=== PATIENT | male | born 1950 | race Caucasian/White ===

== ENCOUNTER → 2017-01-13 | Outpatient (CLI) | payer BC ==
[~2017-01-13] MED LIST: MULT-506 PO
[2017-01-13 08:52] LABS: ALT/SGPT 22 U/L (12-78); AST/SGOT 18 U/L (15-37); BLOOD UREA NITROGEN 13 mg/dl (7-18); BUN/CREATININE RATIO 14.1 (10-20); CARBON DIOXIDE 30 mmol/L (21-32); CHLORIDE 107 mmol/L (98-107); CHOLESTEROL 219 mg/dl (0-200); CREATININE 0.92 mg/dl (0.60-1.40); GLUCOSE 90 mg/dl (70-99); POTASSIUM 4.3 mmol/L (3.5-5.1); SODIUM 145 mmol/L (136-145); TRIGLYCERIDES 56 mg/dl (0-150); VERY LOW DENSITY LIPOPROT CALC 11 mg/dl
[2017-01-13 08:56] LABS: HDL CHOLESTEROL 74 mg/dl; LDL CHOLESTEROL CALCULATED 134 mg/dl
== END | disposition home or self-care (01) ==
LOC: C.LAB 07:35
PROVIDERS: ATTEND Internal Medicine
DX: E55.9 Vitamin D deficiency, unspecified (principal); E78.5 Hyperlipidemia, unspecified; R97.20 Elevated prostate specific antigen [PSA]

== ENCOUNTER → 2017-02-03 | Outpatient (CLI) | payer BC ==
[2017-02-03 11:13] LABS: BLOOD UREA NITROGEN 12 mg/dl (7-18); BUN/CREATININE RATIO 13.5 (10-20); CREATININE 0.92 mg/dl (0.60-1.40)
== END ==
LOC: C.LABBC 07:46
PROVIDERS: ATTEND Urology
DX: Z12.5 Encounter for screening for malignant neoplasm of prostate (principal); R97.20 Elevated prostate specific antigen [PSA]

== ENCOUNTER → 2017-05-07 | Outpatient (CLI) | payer BC ==
[~2017-05-07] MED LIST changes: +ALFU10TA2 PO; +DTR/5 PO; +IBUP-1050 PO; +MULTTAB58 PO; +PHEN95TA14 PO; +PSYL0.524; +PSYL48.59 PO; +TAMS0.4C38 PO
== END | disposition home or self-care (01) ==
LOC: C.PATHSPEC 17:50
PROVIDERS: ATTEND Urology
DX: C61 Malignant neoplasm of prostate (principal)

== ENCOUNTER → 2017-08-21 | Outpatient (CLI) | payer BC ==
[~2017-08-21] MED LIST changes: -ALFU10TA2 PO; -DTR/5 PO; -IBUP-1050 PO; -MULTTAB58 PO; -PHEN95TA14 PO; -PSYL0.524; -PSYL48.59 PO
--- NOTE | 2017-08-21 12:28 | DIAGNOSTIC IMAGING REPORT ---
PELVIS WITHOUT CONTRAST (MRI) CLINICAL HISTORY: PROSTATE CA Spaceoar gel implant assessment COMPARISON STUDY: No previous studies for comparison. FINDINGS: The Spaceoar hydrogel implant is visualized between the rectum and prostate. The implant measures 33 mm transversely, 15 mm in AP diameter, and 47 mm in craniocaudad distance. T2-weighted images reveal a hypointense mass within the peripheral zone of the left side of the prostate. This abuts the capsule. The minimal distance between the rectum and the mass is 7 mm. IMPRESSION: Satisfactory positioning of the hydrogel implant. The minimum distance between the rectum and the left peripheral zone T2 hypointense mass is 7 mm. Electronically signed by: Jorge A Valderrama M.D. 08/21/2017 12:27 PM Dictated Date/Time: 08/21/2017 12:21 PM
== END | disposition home or self-care (01) ==
LOC: C.MRI 07:56
PROVIDERS: ATTEND Physician Assistant Medical
DX: C61 Malignant neoplasm of prostate (principal); Z96.89 Presence of other specified functional implants

== ENCOUNTER → 2017-11-27 | Outpatient (CLI) | payer BC ==
[~2017-11-27] MED LIST changes: +ACET-1311 PO; +ALFU10TA2 PO; +CIPR-255 PO; +DTR/5 PO; +IBUP-1459 PO; +METH1TAB81 PO; +METH4PAK PO; -MULT-506 PO; +MULTTAB58 PO; +PHEN95TA14 PO; +PSYL0.524; +PSYL48.59 PO; -TAMS0.4C38 PO
[2017-11-27 09:06] VITALS: BP 100/64; PULSE 87; TEMP 36.6; O2SAT 96
--- NOTE | 2017-11-27 13:03 | Radiation Oncology Follow-Up ---
Radiation Oncology Follow-Up Date of Visit Nov 27, 2017. Reason For Visit Three-week follow-up in cancer survivorship care plan Radiation Completion Date finished 11-01-2017 utilizing VMAT Diagnosis (1) Prostate cancer Status: Chronic Onset Date: 05/07/2017 Location: both lobes of the prostate Histology Subtype: adenocarcinoma Stage: ll Permanent Comment: Rising PSA to 8.26 01/27/2013 Status post ultrasound-guided biopsies 05/21/2013, benign Rising PSA to 14.5 Ultrasound-guided biopsies 05/07/2017 Adenocarcinoma Fior 3+3 and 3+4 Hormone suppression Status post gold fiducials and Space OAR 08/14/2017 Status post completion of radiation therapy 11/01/2017 utilizing VMAT. Last Edited By: Renetta Fuller on Nov 12, 2017 09:51 History of Present Illness Mr. Devi has a history of an elevated PSA. His PSA was 7.61 on 10/15/2012, 8.26 on 01/27/2013, 10.6 on 07/02/2014, 11.4 on 01/07/2016, 14.8 on 01/13/2017, and 14.5 on 02/03/2017. He did previously undergo a biopsy of the prostate gland on 05/21/2013 for his elevated PSA which was negative. He did see Dr. Zelaya and reevaluation who recommended repeating a transrectal ultrasound- guided biopsy. Dr. Zelaya did also perform a rectal examination prior to his biopsy which did not reveal any evidence of palpable disease. The patient was brought for a transrectal ultrasound-guided biopsy on 05/07/2017. The prostate gland was measured to be 37.0 cc. Pathology revealed prostate adenocarcinoma involved in 3/14 cores. The highest [place] score was Fior 3+4 involving 2 course with no evidence of perineural invasion. Dr. Zelaya discuss treatment options including potential active surveillance, surgery and radiation therapy. We are now seeing the patient in consultation discussed role of radiation therapy. In general, the patient is doing relatively well. His IPSS score today is 16/ 35. He design take any medications for urinary flow. His EPIC QoL score is 7/ 60. He denies any history of rectal bleeding or hemorrhoids. He denies any history of inflammatory bowel disease or TURP. He has no other complaints at this point. He made decision to undergo hormone suppression followed by radiation therapy. Radiation was completed 11/01/2017 he received 8100 cGy utilizing VMAT. Interim History His had increased urinary symptoms. His symptoms would increase and then decrease over the past 3 weeks. He has not been taking medication on a regular basis. He took Uroxatral for 10 days following treatment. He then stop the medication and started oxybutynin. He wanted to see if the oxybutynin would be more effective. He took this 3 times a day with Azo. Periodically he would add ibuprofen. He then took Azo and ibuprofen alone for a week. Most recently he is taking Ditropan and Uroxatral. Some days will be better than others. He is also been having frequent loose bowel movements. This occurs up to 12 times per day. He feels fatigued due to lack of sleep. He completed an AUA score sheet and gave a score of 49 with adding the number of times per night he gets up to urinate. There are times when he feels as though he needs to urinate and is unable. If he tries again a little later then he is able to urinate. He stopped taking Metamucil. He completed and expanded prostate cancer index composite for clinical practice and gave a score of 4 of 12 and urinary incontinence symptoms. He gave a score of 12 of 12 urinary irritation symptoms. He gave a score of 9 of 12 and bowel symptoms. He gave a score 512 in sexual symptoms. He gave a score of 3 of 12 in hormonal vitality symptoms. His total was 33 of 60. While in our office today the urinalysis was requested. On 2 occasions she attempted to urinate and was unable to urinate. Allergies Coded Allergies: No Known Allergies (Unverified , 11/29/17) Home Medications Scheduled Alfuzosin Hcl (Uroxatral), 10 MG PO DAILY Methylprednisolone (Medrol Dosepak), 1 PKT PO UD Multiple Vitamin (Multivitamin), 1 TAB PO DAILY Phenazopyridine Hcl (Azo Tabs), 1 TAB PO BID Psyllium (Metamucil), 1 PKT PO DAILY Scheduled PRN Ibuprofen (Motrin), 400 MG PO Q6H PRN for Pain Miscellaneous Medications Methylprednisolone (Medrol), 4 MG PO Review of Systems Gastrointestinal: Symptoms: Diarrhea GI Comments: diarrhea every other day , occ consipation Oral: Symptoms: Scant Saliva/Dry Mouth Respiratory: Symptoms: SOB At Rest, SOB With Exertion Other Respiratory: " I had a sneezing episode last night " Urinary: Symptoms: Pain, Burning, Nocturia, Frequency Comments: urinationing every 10 min 2 hrs a day, has occ pain and burning Skin: Symptoms: No Problems Physical Exam Vital Signs Date Time Temp Pulse Resp B/P (MAP) Pulse Ox O2 Delivery O2 Flow Rate FiO2 11/27/17 09:06 36.6 87 18 100/64 96 Fatigue: None General Appearance: no apparent distress Eyes: normal inspection, EOMI ENT: normal ENT inspection, hearing grossly normal Respiratory/Chest: lungs clear, no respiratory distress, no accessory muscle use Cardiovascular: regular rate, rhythm, no gallop, no murmur Abdomen: non tender, soft, no organomegaly Extremities: no pedal edema Neurologic/Psychiatric: no motor/sensory deficits, alert, normal mood/affect Pain Management Patient Reports Pain: No Side: Bilateral Patient Preferred Pain Scale: 0 - 10 Initial Pain Intensity: 0.0 Pain Management Plan He describes a lower pelvic pressure. He takes Azo for dysuria. He does not require pain medication. Laboratory Laboratory Results: pending (urinalysis and culture if indicated) Pathology Pathology Results: pending Imaging Imaging Comments Bladder scan was obtained today and reveals 500-600 mL Assessment & Plan Plan: The patient's also seen and examined by Dr. Reis. We have given him a instruction sheet to follow. Prescription was given for Medrol Dosepak. He'll continue Uroxatral daily. He will stop the oxybutynin. He is to take Metamucil 2 scoops daily. He is to take Azo 3 times a day. Straight catheterization was performed. 475 mL were obtained. Urine was sent for urinalysis and culture if indicated. PSA was not obtained today due to his symptoms and the straight catheterization. We asked him to return to our office in 2 weeks. We may hold on getting a PSA for approximately one month. Today we completed a cancer survivorship care plan. A copy of the document was given to the patient. He was given a survivorship booklet. He may call our office if he has the questions or concerns in the interim. Assessment & Plan (Attending) ADDENDUM: I agree with note created by Renetta Fuller PA-C. I reviewed the patient's chart and information with her. I have examined and evaluated the patient. I reviewed relevant clinical information and answered the patient's and /or family's questions. CLINICAL NURSING ASSISTANT Total Time In Follow-Up I spent 25 minutes speaking to the patient performing examination. I spent 15 minutes reviewing information in completing this note. Total Time (Attending) In Follow-Up I spent 15 minutes examining and counseling the patient. CLINICAL NURSING ASSISTANT Copy To ,Gregorio Israel M.D.; Harley Zelaya M.D.
== END | disposition home or self-care (01) ==
LOC: C.ONC 09:02
PROVIDERS: ATTEND Physician Assistant Medical
DX: Z08 Encounter for follow-up examination after completed treatment for malignant neoplasm (principal); Z92.3 Personal history of irradiation; Z85.46 Personal history of malignant neoplasm of prostate

== ENCOUNTER 2017-11-29 08:19 | Emergency (ER) | payer BC ==
[~2017-11-29] VITALS: Ht 185.4 cm; Wt 74.5 kg
[~2017-11-29 08:19] MED LIST changes: -ACET-1311 PO; -CIPR-255 PO; -METH1TAB81 PO; -METH4PAK PO; -PSYL0.524
[2017-11-29 08:23] VITALS: Ht 185.4 cm; Wt 74.5 kg
[2017-11-29] MEDS ORDERED: METH1TAB81 PO (09:24)
[2017-11-29] MEDS ORDERED: METH4PAK PO (09:24)
--- NOTE | 2017-11-29 10:40 | EMERGENCY ROOM VISIT NOTE ---
History Report prepared by Lucian: Nan Flower Under the Supervision of: Dr. Chris Woodson D.O. 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 He reports being catheterized two days ago to help void, though he is having similar inability to void and is not currently catheterized. He notes that he has not been able to significantly urinate and it feels like his bladder is going to burst. He currently rates his discomfort a 10/10 in severity. He notes diarrhea and urinary symptoms. He has a history of prostate cancer and has recently completed radiation therapy two weeks ago. 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 Review of Systems See HPI for pertinent positives & negatives. A total of 10 systems reviewed and were otherwise negative. Past Medical & Surgical Medical Problems: (1) Prostate cancer (2) Urinary problem Family History Cancer Kidney disease Social History Smoking Status: Never Smoker Smokeless Tobacco Use: No Alcohol Use: occasionally (1 glass a day) Drug Use: none Marital Status: Housing Status: lives with significant other Occupation Status: unemployed Current/Historical Medications Scheduled Alfuzosin Hcl (Uroxatral), 10 MG PO DAILY Methylprednisolone (Medrol Dosepak), 1 PKT PO UD Multiple Vitamin (Multivitamin), 1 TAB PO DAILY Phenazopyridine Hcl (Azo Tabs), 1 TAB PO BID Psyllium (Metamucil), 1 PKT PO DAILY Scheduled PRN Ibuprofen (Motrin), 400 MG PO Q6H PRN for Pain Miscellaneous Medications Methylprednisolone (Medrol), 4 MG PO Allergies Coded Allergies: No Known Allergies (Unverified , 11/29/17) Physical Exam Vital Signs Date Time Temp Pulse Resp B/P (MAP) Pulse Ox O2 Delivery O2 Flow Rate FiO2 11/29/17 10:55 36.8 88 19 141/69 96 11/29/17 10:40 36.8 82 20 141/69 96 Room Air 11/29/17 09:35 36.8 82 20 140/76 96 Room Air 11/29/17 08:37 36.8 80 20 143/75 96 Room Air 11/29/17 08:23 36.8 77 20 141/77 97 Room Air Physical Exam CONSTITUTIONAL/VITAL SIGNS: Reviewed / noted above. GENERAL: Non-toxic in appearance. INTEGUMENTARY: Warm, dry, and [place]. HEAD: Normocephalic. EYES: without scleral icterus or trauma. ENT/OROPHARYNX: clear and moist. LYMPHADENOPATHY/NECK: Is supple without lymphadenopathy or meningismus. RESPIRATORY: Lungs clear and equal. CARDIOVASCULAR: Regular rate and rhythm. GI/ABDOMEN: Soft. Palpable distended bladder tenderness over suprapubic area. No organomegaly or pulsatile mass. No rebound or guarding. Normal bowel sounds. EXTREMITIES: Warm and well perfused. BACK: No CVA tenderness. NEUROLOGICAL: Intact without focal deficits. PSYCHIATRIC: normal affect. MUSCULOSKELETAL: Normally developed with good muscle tone. Medical Decision & Procedures Medications Administered Medications (Trade) Dose Ordered Sig/Kirsten Route Start Time Stop Time Status Last Admin Dose Admin Oxycodone/ Acetaminophen (Percocet 5-325mg Tab) 1 tab NOW ONCE PO 11/29/17 10:45 11/29/17 10:46 DC 11/29/17 11:04 1 TAB Oxycodone/ Acetaminophen (Percocet 5/ 325MG Home Pack) 1 homepack UD ONCE PO 11/29/17 10:45 11/29/17 10:46 DC 11/29/17 11:04 1 HOMEPACK ED Course 0838: Previous medical records were reviewed. The patient was evaluated in room B9. A complete history and physical examination was performed. 1022: I reassessed the patient at this time. The patient was catheterized and relieved of 1 L urine. He is feeling better at this time. I discussed the results and treatment plan with the patient. I answered all pertaining questions that he had. He expressed understanding and verbalized agreement. The patient will be discharged home. 1045: Ordered Oxycodone/Acetaminophen 1 homepack PO and 1 tab PO Medical Decision Differential considered: pancreatitis, hepatitis, or acute cholecystitis, AAA, UTI, pyelonephritis, kidney stones, appendicitis, diverticulitis, shingles, bowel obstruction mesenteric ischemia, intussusception, hernia, testicular torsion. This is a 67-year-old male who presents to the ED with a chief complaint of inability to urinate. The patient has history of prostate cancer and has recently had radiation therapy to the prostate. When he saw his oncologist a couple of days ago, they cathed him to empty his bladder. The patient has had discomfort in the bladder and has had no substantial urination since that time. Bladder scan here reveals a very 100 mL of urine in the bladder. A catheter was placed by the nursing staff and the bladder was drained for about a liter of fluid. The patient was given a Percocet for some discomfort in the penis. He was to follow-up with his urologist next week as he already has an appointment scheduled. He believes it is Sunday or Sunday. The patient's urine dip did not show infection. A culture has been sent. The patient is felt to be stable for discharge. Medication Reconcilliation Current Medication List: was personally reviewed by me Blood Pressure Screening Patient's blood pressure: Elevated blood pressure Blood pressure disposition: Elevated BP felt to be situational Impression Primary Impression: Urinary retention Additional Impression: Prostate cancer Scribe Attestation The scribe's documentation has been prepared under my direction and personally reviewed by me in its entirety. I confirm that the note above accurately reflects all work, treatment, procedures, and medical decision making performed by me. Departure Information Dispostion Home / Self-Care Referrals Gregorio Osborn M.D. (PCP) Forms HOME CARE DOCUMENTATION FORM, IMPORTANT VISIT INFORMATION Patient Instructions My [facility] Additional Instructions Follow-up with Dr. Zelaya as scheduled. Follow-up with your doctor for further care and evaluation in 1-2 days. Return to the emergency department for worsening or new symptoms or any concerns. You have been examined and treated today on an emergency basis only. This is not a substitute for, or an effort to provide, complete comprehensive medical care. It is impossible to recognize and treat all injuries or illnesses in a single emergency department visit. It is therefore important that you follow up closely with your doctor. Call as soon as possible for an appointment. Problem Qualifiers
[2017-11-29] MEDS ORDERED: OXYCODONE/ACETAMINOPHEN 5-325 TAB PO ONE (10:45)
[2017-11-29] MEDS ORDERED: PERCOCET HOME PACK PO ONE (10:45)
[2017-11-29 10:55] VITALS: BP 141/69; PULSE 88; TEMP 36.8; O2SAT 96
== END 2017-11-29 10:56 | disposition home or self-care (01) ==
LOC: C.EDB 08:21
DX: R33.9 Retention of urine, unspecified (principal); Z85.46 Personal history of malignant neoplasm of prostate; Z92.3 Personal history of irradiation; Z80.9 Family history of malignant neoplasm, unspecified; Z84.1 Family history of disorders of kidney and ureter

== ENCOUNTER 2017-12-17 05:18 | Day surgery (SDC) | payer BC ==
[2017-12-13 09:58] VITALS: BMI 21.0
--- NOTE | 2017-12-13 10:22 | PAT Medication Instructions ---
Service Date Dec 13, 2017. Current Home Medication List Acetaminophen (Tylenol), 650 MG PO Q6 PRN for Pain Alfuzosin Hcl (Uroxatral), 10 MG PO QAM Multiple Vitamin (Multivitamin), 1 TAB PO QAM Phenazopyridine Hcl (Azo Tabs), 1 TAB PO BID Psyllium (Metamucil), 1 PKT PO BID Medication Instructions For Your Scheduled Surgery - Hold the following medications the morning of surgery: Alfuzosin Hcl (Uroxatral), 10 MG PO QAM Multiple Vitamin (Multivitamin), 1 TAB PO QAM Phenazopyridine Hcl (Azo Tabs), 1 TAB PO BID Psyllium (Metamucil), 1 PKT PO BID - Take the following medications the morning of surgery with a sip of water: Acetaminophen (Tylenol), 650 MG PO Q6 PRN for Pain (okay to take up to 4 hours prior to surgery if needed) - Take the following medications as scheduled the night before surgery: Acetaminophen (Tylenol), 650 MG PO Q6 PRN for Pain Psyllium (Metamucil), 1 PKT PO BID Phenazopyridine Hcl (Azo Tabs), 1 TAB PO BID If you have any questions please call us at [phone] or [phone] or [phone]
[2017-12-13 10:50] LABS: BASO % 0.5 %; BASO ABS # 0.02 K/uL (0-0.2); EOS % 2.9 %; EOS ABS # 0.11 K/uL (0-0.5); HEMATOCRIT 37.2 % (42-52); HEMOGLOBIN 12.6 g/dL (14.0-18.0); IG# 0.01 K/uL (0.00-0.02); LYMPH % 14.3 %; LYMPH ABS # 0.54 K/uL (1.2-3.4); MEAN CELL VOLUME 95.6 fL (80-100); MEAN CORPUSCULAR HEMOGLOBIN 32.4 pg (25-34); MEAN CORPUSCULAR HGB CONC 33.9 g/dl (32-36); MONO % 16.7 %; MONO ABS # 0.63 K/uL (0.11-0.59); NEUT % 65.3 %; NEUT ABS # 2.46 K/uL (1.4-6.5); PLATELET COUNT 147 K/uL (130-400); RED CELL DISTRIBUTION WIDTH CV 13.1 % (11.5-14.5); RED CELL DISTRIBUTION WIDTH SD 45.8 fL (36.4-46.3); WHITE BLOOD COUNT 3.77 K/uL (4.8-10.8)
--- NOTE | 2017-12-13 10:59 | DIAGNOSTIC IMAGING REPORT ---
CHEST 2 VIEWS ROUTINE CLINICAL HISTORY: PAT preoperative evaluation COMPARISON STUDY: No previous studies for comparison. FINDINGS: The bones soft tissues and hemidiaphragms are normal. The cardiomediastinal silhouette is normal. The lungs are clear. The pulmonary vasculature is normal. IMPRESSION: Negative chest. The above report was generated using voice recognition software. It may contain grammatical, syntax or spelling errors. Electronically signed by: Lai Fabian M.D. 12/13/2017 10:58 AM Dictated Date/Time: 12/13/2017 10:57 AM
[2017-12-13 12:08] LABS: CALCIUM 9.2 mg/dl (8.5-10.1); CREATININE 0.8 mg/dl (0.60-1.40)
[~2017-12-17] VITALS: Ht 185.4 cm; Wt 74.3 kg
[~2017-12-17 05:18] MED LIST changes: +ACET-1311 PO; -DTR/5 PO; -IBUP-1459 PO
[2017-12-17 05:41] VITALS: BP 135/67; PULSE 73; TEMP 36.6; O2SAT 99; Ht 185.4 cm; Wt 74.3 kg
[2017-12-17] MEDS ORDERED: CIPROFLOXACIN / D5W 400 MG IV SCH (06:00)
[2017-12-17] MEDS ORDERED: LACTATED RINGER'S 1000ML 1,000 ML IV SCH (06:00)
[2017-12-17] MEDS ORDERED: DEXAMETHASONE SOD INJ 4 MG/ML VIAL ONE (06:47)
[2017-12-17] MEDS ORDERED: MIDAZOLAM HCL 1 MG/ML 2ML VIAL ONE (06:47)
[2017-12-17] MEDS ORDERED: LIDOCAINE HCL 2% 2 ML VIAL (20MG/ML) ONE (06:47)
[2017-12-17] MEDS ORDERED: PROPOFOL IV EMULSION 10 MG/ML 20 ML VIAL IV ONE (06:47)
[2017-12-17] MEDS ORDERED: ONDANSETRON INJ 2 MG/ML 2 ML VIAL ONE (06:47)
[2017-12-17] MEDS ORDERED: FENTANYL CITRATE INJ 50 MCG/1 ML 2 ML VIAL ONE (06:47)
--- NOTE | 2017-12-17 07:05 | History & Physical Bridge Note ---
H&P Re-Evaluation Bridge Note: I have examined the patient, reviewed the History & Physical and in the interval since the performance of the History & Physical I have noted the following changes of clinical significance: No changes noted
[2017-12-17] MEDS ORDERED: CIPR-255 PO (07:23)
[2017-12-17] MEDS ORDERED: PHEN95TA14 PO (07:23)
--- NOTE | 2017-12-17 07:24 | Discharge Instructions ---
Discharge Instructions Date of Service Dec 17, 2017. Admission Reason for Admission: Benign Prostatic Hypertrophy Discharge Discharge Diagnosis / Problem: BPH Discharge Goals Goal(s): Decrease discomfort, Improve function, Increase independence, Improve disease control Activity Recommendations Activity Limitations: resume your previous activity Lifting Limitations: none Exercise/Sports Limitations: none May Resume Sexual Activity: when tolerated Shower/Bathe: no limitations Driving or Machine Use: no limitations . Instructions / Follow-Up Instructions / Follow-Up Please keep your previously scheduled follow up appointment. Current Hospital Diet Patient's current hospital diet: Discharge Diet Recommended Diet: Regular Diet Pending Studies Studies pending at discharge: no Medical Emergencies . Who to Call and When: Medical Emergencies: If at any time you feel your situation is an emergency, please call 911 immediately. . Non-Emergent Contact Non-Emergency issues call your: Urologist Call Non-Emergent contact if: you have a fever, temperature is above 101.5, your pain is not controlled, your pain is worsening . . "Provider Documentation" section prepared by Nelson Amezcua. . VTE Core Measure Inpt VTE Proph given/why not?: Treatment not indicated
[2017-12-17] MEDS ORDERED: ATROPINE SULFATE 0.1 MG/ML 5ML SYR IV PRN (07:30)
[2017-12-17] MEDS ORDERED: ONDANSETRON INJ 2 MG/ML 2 ML VIAL IV PRN (07:30)
[2017-12-17] MEDS ORDERED: LABETALOL HCL IV 5 MG/ML 20ML IV PRN (07:30)
[2017-12-17] MEDS ORDERED: FLUMAZENIL 0.1 MG/1 ML 10 ML VIAL IV PRN (07:30)
[2017-12-17] MEDS ORDERED: MEPERIDINE HCL 25 MG/ML CARP IV PRN (07:30)
[2017-12-17] MEDS ORDERED: HYDROmorphone INJ 2 MG/ML SYR/VIAL IV PRN (07:30)
[2017-12-17] MEDS ORDERED: PHENYLEPHRINE 100MCG/ML 5ML SYR IV PRN (07:30)
[2017-12-17] MEDS ORDERED: EpHEDrine SULFATE INJ 50 MG/ML AMP IV PRN (07:30)
[2017-12-17] MEDS ORDERED: NALOXONE HCL 0.4 MG/1 ML VIAL/CARP IV PRN (07:30)
[2017-12-17] MEDS ORDERED: EpHEDrine SULFATE INJ 50 MG/ML AMP ONE (07:57)
[2017-12-17] MEDS ORDERED: BELLADONNA/OPIUM SUPP 60 MG SUPP PR ONE ×2 (08:05→09:18)
[2017-12-17] MEDS ORDERED: SODIUM CHLORIDE 0.9% 1000ML 1,000 ML IV SCH (08:09)
--- NOTE | 2017-12-17 08:09 | [facility] Post Operative Brief Note ---
Immediate Operative Summary Operative Date Dec 17, 2017. Pre-Operative Diagnosis Urinary Retention Post-Operative Diagnosis Urinary Retention Procedure(s) Performed Cystoscopy; Button Transurethral Resection Prostate Surgeon Dr. Sidney Zelaya Food Stylist Surgeon(s) none Estimated Blood Loss 5mL Findings Consistent with Post-Op Diagnosis Specimens None per surgeon Drains None Anesthesia Type General Complication(s) none Disposition Accompanied Pt To Recover: yes Disposition: Recovery Room / PACU
[2017-12-17] MEDS ORDERED: OXYCODONE/ACETAMINOPHEN 5-325 TAB PO PRN ×2 (08:15)
[2017-12-17] MEDS ORDERED: ACETAMINOPHEN 325 MG TAB PO PRN (08:15)
--- NOTE | 2017-12-17 08:18 | [facility] Operative Report ---
Operative Report Operative Date Dec 17, 2017. Pre-Operative Diagnosis Urinary Retention Post-Operative Diagnosis Urinary Retention Procedure(s) Performed Cystoscopy; Button Transurethral Resection Prostate Surgeon Dr. Sidney Zelaya Deputy Clerk Of Court Surgeon(s) none Estimated Blood Loss 5mL Findings Notable intravesical median lobe Specimens None per surgeon Drains 22 Malt[place] Garcia Anesthesia Gen. Complication(s) None Disposition Recovery Room / PACU Indications Urinary retention Description of Procedure The patient was identified in the preoperative holding area, appropriate informed consents were reviewed and completed and he was transported to the operating suite. Upon arrival he received appropriate preoperative antibiotics in the form of ciprofloxacin, general anesthesia. Allowing sterile prep and drape, I inserted a 24 Maltese resectoscope with 30 lens and visual obturator. Inspection of the urethra revealed no evidence of stricture disease. His prostate was noted to have lateral lobe obstruction as well as a large intravesical median lobe. Full inspection of the bladder was conducted, noting catheter-related cystitis but no other abnormalities. I subsequently exchanged the visual obturator for a resecting element with a button electrode. I identified the ureteral orifices and incised the bladder neck in a line from the ureteral orifices towards the verumontanum. I subsequently resected the intravesical median lobe working from these incisions medially. After flattening the bladder neck, I turned my attention to the lateral lobes begin to gently resect the lateral lobes. Of note, he has recently completed radiation for prostate cancer, and I was cautious around the apex of the prostate with minimal resection in this area. At the conclusion of the case, I ensured excellent hemostasis and felt that his obstruction and been adequately treated. I left the bladder full and withdrew the scope before placing a 22 Maltese Garcia catheter. He was extubated and taken to the PACU in stable condition. There were no complications. I attest to the content of the Intraoperative Record and any orders documented therein. Any exceptions are noted below.
[2017-12-17] MEDS: FENTANYL CITRATE INJ 50 MCG/1 ML 2 ML VIAL IV PRN ×4 (08:25→08:40)
[2017-12-17 09:15] VITALS: BP 125/67; PULSE 80; TEMP 36.5; O2SAT 99
--- NOTE | 2017-12-17 09:16 | Anesthesiology Progress Note ---
Anesthesia Post Op Note Date & Time Dec 17, 2017 at 09:16 Vital Signs Pain Intensity: 3 Vital Signs Past 12 Hours Date Time Temp Pulse Resp B/P (MAP) Pulse Ox O2 Delivery O2 Flow Rate FiO2 12/17/17 09:07 74 27 100 12/17/17 09:07 74 27 12/17/17 09:06 129/75 12/17/17 09:02 71 13 100 12/17/17 09:02 71 13 12/17/17 09:01 124/67 12/17/17 08:57 72 18 100 12/17/17 08:57 74 18 12/17/17 08:56 126/68 12/17/17 08:54 70 12 100 12/17/17 08:54 71 12 12/17/17 08:51 130/70 12/17/17 08:49 78 16 100 12/17/17 08:49 79 16 12/17/17 08:47 36.4 9 133/69 (87) 100 Nasal Cannula 2 12/17/17 08:46 133/69 12/17/17 08:44 78 16 12/17/17 08:44 78 16 100 12/17/17 08:41 135/69 12/17/17 08:39 83 17 100 12/17/17 08:39 82 17 12/17/17 08:38 80 16 100 12/17/17 08:38 80 16 12/17/17 08:36 132/73 12/17/17 08:33 80 14 100 12/17/17 08:33 81 14 12/17/17 08:31 131/77 12/17/17 08:28 80 11 100 12/17/17 08:28 80 11 12/17/17 08:26 127/71 12/17/17 08:23 81 16 100 12/17/17 08:23 80 16 12/17/17 08:21 128/75 12/17/17 08:19 139/76 12/17/17 08:18 36.2 88 18 139/76 100 Nasal Cannula 10 12/17/17 05:41 36.6 73 18 135/67 (89) 99 Room Air Notes Mental Status: alert / awake / arousable, participated in evaluation Pt Amnestic to Procedure: Yes Nausea / Vomiting: adequately controlled Pain: adequately controlled Airway Patency, RR, SpO2: stable & adequate BP & HR: stable & adequate Hydration State: stable & adequate Anesthetic Complications: no major complications apparent
[2017-12-17 09:45] VITALS: BP 119/55; PULSE 82; TEMP 36.5; O2SAT 99
== END 2017-12-17 10:30 | disposition home or self-care (01) ==
LOC: C.ACU 05:18
PROVIDERS: ATTEND Urology
DX: R33.9 Retention of urine, unspecified (principal); E78.5 Hyperlipidemia, unspecified; Z90.89 Acquired absence of other organs; Z79.899 Other long term (current) drug therapy; Z98.890 Other specified postprocedural states; Z85.46 Personal history of malignant neoplasm of prostate; Z82.49 Family history of ischemic heart disease and other diseases of the circulatory system; Z80.0 Family history of malignant neoplasm of digestive organs

== ENCOUNTER → 2018-03-02 | Outpatient (CLI) | payer BC ==
[~2018-03-02] MED LIST changes: -ALFU10TA2 PO; +CIPR-255 PO
[2018-03-02 11:22] LABS: BASO % 0.2 %; BASO ABS # 0.01 K/uL (0-0.2); EOS % 4.7 %; EOS ABS # 0.25 K/uL (0-0.5); HEMATOCRIT 36.9 % (42-52); IG# 0.02 K/uL (0.00-0.02); LYMPH % 19.5 %; LYMPH ABS # 1.04 K/uL (1.2-3.4); MEAN CELL VOLUME 94.1 fL (80-100); MEAN CORPUSCULAR HEMOGLOBIN 33.2 pg (25-34); MEAN CORPUSCULAR HGB CONC 35.2 g/dl (32-36); MEAN PLATELET VOLUME 10.4 fL (7.4-10.4); MONO % 8.1 %; MONO ABS # 0.43 K/uL (0.11-0.59); NEUT % 67.1 %; NEUT ABS # 3.58 K/uL (1.4-6.5); PLATELET COUNT 182 K/uL (130-400); RED CELL DISTRIBUTION WIDTH CV 12.7 % (11.5-14.5); RED CELL DISTRIBUTION WIDTH SD 43.4 fL (36.4-46.3); WHITE BLOOD COUNT 5.33 K/uL (4.8-10.8)
[2018-03-02 11:43] LABS: ALT/SGPT 21 U/L (12-78); AST/SGOT 16 U/L (15-37); BLOOD UREA NITROGEN 14 mg/dl (7-18); CALCIUM 9.1 mg/dl (8.5-10.1); CARBON DIOXIDE 30 mmol/L (21-32); CREATININE 0.86 mg/dl (0.60-1.40); GLUCOSE 93 mg/dl (70-99); POTASSIUM 4.2 mmol/L (3.5-5.1); SODIUM 139 mmol/L (136-145)
== END | disposition home or self-care (01) ==
LOC: C.LAB 10:34
PROVIDERS: ATTEND Urology
DX: R33.9 Retention of urine, unspecified (principal); E78.5 Hyperlipidemia, unspecified; E55.9 Vitamin D deficiency, unspecified

== ENCOUNTER → 2018-03-13 | Outpatient (CLI) | payer BC ==
[2018-03-13 14:17] VITALS: BP 117/75; PULSE 81; TEMP 36.2; O2SAT 96
--- NOTE | 2018-03-13 16:41 | Radiation Oncology Follow-Up ---
Radiation Oncology Follow-Up Date of Visit Mar 13, 2018. Reason For Visit 4 months since completion of radiation Radiation Completion Date 11/01/17 Diagnosis (1) Prostate cancer Status: Acute Onset Date: 05/07/2017 Location: Both lobes of the prostate Histology Subtype: Adenocarcinoma Stage: ll (Biopsy stage) Permanent Comment: Rising PSA to 8.26 01/27/2013 Status post ultrasound-guided biopsies 05/21/2013, benign Rising PSA to 14.5 Ultrasound-guided biopsies 05/07/2017 Adenocarcinoma Fior 3+3 and 3+4 Hormone suppression Lupron 22.5 mg August 09, 2017 Status post gold fiducials and Space OAR 08/14/2017 Status post completion of radiation therapy 11/01/2017 utilizing VMAT. Lupron 22.5 mg November 08, 2017 November 27, 2017 acute urinary retention, catheter placed December 05, 2017 status post cystoscopy December 13, 2017 status post TURP December 18, 2017 status post removal of catheter Last Edited By: Renetta Fuller on Mar 13, 2018 16:31 History of Present Illness Mr. Devi has a history of an elevated PSA. His PSA was 7.61 on 10/15/2012, 8.26 on 01/27/2013, 10.6 on 07/02/2014, 11.4 on 01/07/2016, 14.8 on 01/13/2017, and 14.5 on 02/03/2017. He did previously undergo a biopsy of the prostate gland on 05/21/2013 for his elevated PSA which was negative. He did see Dr. Zelaya and reevaluation who recommended repeating a transrectal ultrasound- guided biopsy. Dr. Zelaya did also perform a rectal examination prior to his biopsy which did not reveal any evidence of palpable disease. The patient was brought for a transrectal ultrasound-guided biopsy on 05/07/2017. The prostate gland was measured to be 37.0 cc. Pathology revealed prostate adenocarcinoma involved in 3/14 cores. The highest [place] score was [place] 3+4 involving 2 course with no evidence of perineural invasion. Dr. Zelaya discuss treatment options including potential active surveillance, surgery and radiation therapy. We are now seeing the patient in consultation discussed role of radiation therapy. In general, the patient is doing relatively well. His IPSS score today is 16/ 35. He design take any medications for urinary flow. His EPIC QoL score is 7/ 60. He denies any history of rectal bleeding or hemorrhoids. He denies any history of inflammatory bowel disease or TURP. He has no other complaints at this point. He made decision to undergo hormone suppression followed by radiation therapy. Radiation was completed 11/01/2017 he received 8100 cGy utilizing VMAT. Interim History Following his last visit he developed urinary retention and presented to the emergency room. A catheter was placed. He followed up with Dr. Zelaya and underwent cystoscopy December 05, 2017. Decision was made to proceed with TURP and that was performed on December 13, 2017. Catheter remain in place till December 18. This was removed and he was then able to void on his own. All medications were stopped on December 28, 2017. He did continue to have urgency and some incontinence. Today gave an AUA score of 11. He completed and expanded prostate cancer index composite for clinical practice and gave a score of 3 of 12 and urinary incontinence symptoms. He gives score 3 of 12 and urinary irritation symptoms. He gave a score of 0 of 12 and bowel symptoms. He gave a score of 7 of 12 in sexual symptoms. He gave a score of 3 of 12 and hormonal vitality symptoms. His total was 16 of 60. Today he presented with a detailed synopsis of the events that occurred prior to during and after the TURP. He currently continues off all medications previously given to help with urinary symptoms. Allergies Coded Allergies: No Known Allergies (Unverified , 12/17/17) Home Medications Scheduled Multiple Vitamin (Multivitamin), 1 TAB PO QAM Psyllium (Metamucil), 1 PKT PO DAILY Scheduled PRN Acetaminophen (Tylenol), 650 MG PO Q6 PRN for Pain Review of Systems Gastrointestinal: Symptoms: WNL Oral: Symptoms: No Problems Other Oral Symptoms: "Stiffer swallowing than it used to be" Respiratory: Symptoms: WNL Urinary: Symptoms: WNL, Incontinence, Nocturia Comments: 2 incidences since 11/2017 of total incontinence, nocturia x 4-5 Skin: Symptoms: No Problems Physical Exam Vital Signs Date Time Temp Pulse Resp B/P (MAP) Pulse Ox O2 Delivery O2 Flow Rate FiO2 03/13/18 14:17 36.2 81 16 117/75 96 Fatigue: None General Appearance: no apparent distress Eyes: normal inspection, EOMI ENT: normal ENT inspection, hearing grossly normal Neck: no adenopathy, thyroid normal Respiratory/Chest: lungs clear, no respiratory distress, no accessory muscle use Cardiovascular: regular rate, rhythm, no gallop, no murmur Abdomen: non tender, soft, no organomegaly Extremities: no pedal edema Neurologic/Psychiatric: no motor/sensory deficits, alert, normal mood/affect Skin: warm/dry Pain Management Patient Reports Pain: No Pain Management Plan He denies pain therefore requires no pain medications. Laboratory Laboratory Results: were reviewed, and pertinent findings noted below Laboratory Comments: He had a PSA March 02, 2018 and that was 0.092. Pathology Pathology Results: were reviewed, and pertinent findings noted in HPI Imaging Imaging Studies: not applicable Assessment & Plan Plan: The patient was seen today by Dr. Reis. He reviewed the synopsis brought in by the patient reviewing the log of events that occurred before during and after the TURP. He continues off all medications that help with urination. He completed his 6 month of Lupron mid January. He will continue regular follow-up with Dr. Zelaya and his primary care provider. We asked him to return to our office in 6 months. He may call if he has any questions or concerns in the interim. Assessment & Plan (Attending) I agree with note created by Renetta Fuller PA-C. I reviewed the patient's chart and information with her. I have examined and evaluated the patient. I reviewed relevant clinical information and answered the patient's and/or family' s questions. DIRECTOR IT Total Time In Follow-Up I spent 20 minutes speaking to the patient in performing examination. I spent 15 minutes reviewing information and completing this note. AK Total Time (Attending) In Follow-Up I spent 15 minutes examining and counseling the patient. DIRECTOR IT Copy To Gregorio Osborn M.D.; Harley Zelaya M.D.
== END | disposition home or self-care (01) ==
LOC: C.ONC 14:04
PROVIDERS: ATTEND Physician Assistant Medical
DX: Z08 Encounter for follow-up examination after completed treatment for malignant neoplasm (principal); Z92.3 Personal history of irradiation; Z85.46 Personal history of malignant neoplasm of prostate

== ENCOUNTER → 2018-04-05 | Outpatient (CLI) | payer BC ==
[~2018-04-05] MED LIST changes: -CIPR-255 PO; -PHEN95TA14 PO
== END | disposition home or self-care (01) ==
LOC: C.LABBC 09:37
PROVIDERS: ATTEND Urology
DX: R97.20 Elevated prostate specific antigen [PSA] (principal)

== ENCOUNTER → 2018-06-26 | Outpatient (CLI) | payer BC ==
[2018-06-26 12:25] LABS: BASO % 0.5 %; BASO ABS # 0.02 K/uL (0-0.2); EOS % 3.6 %; EOS ABS # 0.15 K/uL (0-0.5); HEMATOCRIT 39.2 % (42-52); HEMOGLOBIN 13.5 g/dL (14.0-18.0); LYMPH % 20.7 %; LYMPH ABS # 0.86 K/uL (1.2-3.4); MEAN CELL VOLUME 95.6 fL (80-100); MEAN CORPUSCULAR HEMOGLOBIN 32.9 pg (25-34); MEAN CORPUSCULAR HGB CONC 34.4 g/dl (32-36); MEAN PLATELET VOLUME 11.2 fL (7.4-10.4); MONO % 11.5 %; MONO ABS # 0.48 K/uL (0.11-0.59); NEUT % 63.7 %; NEUT ABS # 2.65 K/uL (1.4-6.5); PLATELET COUNT 164 K/uL (130-400); RED CELL DISTRIBUTION WIDTH CV 13.2 % (11.5-14.5); RED CELL DISTRIBUTION WIDTH SD 45.7 fL (36.4-46.3); WHITE BLOOD COUNT 4.16 K/uL (4.8-10.8)
== END | disposition home or self-care (01) ==
LOC: C.LAB 10:27
PROVIDERS: ATTEND Internal Medicine
DX: D64.9 Anemia, unspecified (principal)

== ENCOUNTER 2020-05-18 05:11 | Observation (INO) ==
--- NOTE | 2020-02-06 10:14 | PAT Medication Instructions ---
Medication Instructions Date of Service February 06, 2020 Home Medications Medication Instructions Recorded Wheeled Walker #1 ea 01/19/20 3-in-1 Commode #1 ea 02/06/20 docusate sodium 100 mg capsule 100 mg PO DAILY cholecalciferol (vitamin D3) [Vitamin D3] 400 unit PO QAM multivitamin 1 tab PO QAM DO NOT take the morning of surgery docusate sodium 100 mg capsule 100 mg PO DAILY cholecalciferol (vitamin D3) [Vitamin D3] 400 unit PO QAM multivitamin 1 tab PO QAM Other Notes If you have any questions please call us at [phone] or [phone] or [phone] or [phone]
--- NOTE | 2020-04-29 11:03 | PAT Medication Instructions ---
Medication Instructions Date of Service April 29, 2020 Home Medications docusate sodium 100 mg capsule 100 mg PO PM cholecalciferol (vitamin D3) [Vitamin D3] 400 unit PO QAM multivitamin 1 tab PO QAM diphenhydramine 25 mg-acetaminophen 500 mg tablet 2 tab PO HS psyllium husk 3.4 gram/5.4 gram oral powder 1 tbs PO QAM DO NOT take the morning of surgery cholecalciferol (vitamin D3) [Vitamin D3] 400 unit PO QAM multivitamin 1 tab PO QAM psyllium husk 3.4 gram/5.4 gram oral powder 1 tbs PO QAM Take evening before surgery docusate sodium 100 mg capsule 100 mg PO PM diphenhydramine 25 mg-acetaminophen 500 mg tablet 2 tab PO HS Other Notes If you have any questions please call us at [phone] or [phone] or [phone] or [phone]
--- NOTE | 2020-05-04 09:04 | Anesthesiology Consultation ---
Date of Service May 04, 2020 Assessment & Plan (1) Encounter for pre-operative examination: Per PAT assessment on 05/04: Travel screen negative. No known COVID-19 positive contacts. No current COVID-19 related symptoms. Surgeon to arrange preop protocol COVID-19 testing (definitive date/location not scheduled yet per patient). Awaiting results. Chart Review Chart Review: Acceptable Risk for Surgery (COVID testing) and Patient seen in Pre Admission Testing Teaching & Discussion Pre-Anesthesia Teaching/Discussion Notes: Instructed NPO after midnight before surgery,except medications with 15 cc of water. Medication instructions provided according to the PAT guidelines. History Surgery Operation Date: 05/18/20 08:50 Proposed Procedures p Left Total Hip Replacement - Odin Soria MD Height/Weight Height: 6 ft Weight: 76.7 kg Allergies Allergy/AdvReac Type Severity Reaction Status Date / Time No Known Allergies Allergy Verified 04/26/20 13:19 Medications Home Medications Medication Instructions Recorded Confirmed Last Taken docusate sodium 100 mg capsule 100 mg PO PM 02/26/19 04/26/20 Unknown cholecalciferol (vitamin D3) 400 unit PO QAM 02/04/20 04/26/20 Unknown [Vitamin D3] multivitamin 1 tab PO QAM 02/04/20 04/26/20 Unknown diphenhydramine 25 2 tab PO HS tab 03/31/20 04/26/20 Unknown mg-acetaminophen 500 mg tablet psyllium husk 3.4 gram/5.4 gram 1 tbs PO QAM 03/31/20 04/26/20 Unknown oral powder Past Medical History Medical History Bilateral hip joint arthritis History of prostate cancer s/p resection + radiation Hyperlipidemia Mild chronic anemia Osteoarthritis Radiation proctitis Urinary frequency + urgency Exercise / Class Metabolic Activity II 4-5 Yardwork/Stairs/Walk up hill Past Family History Family History Mother Colorectal cancer Hypertension Uncle Heart disease Father Renal failure Past Surgical History Surgical History History of prostate biopsy History of tooth extraction Hx of appendectomy Hx of colonoscopy with polypectomy Hx of foot surgery NERVES SURGERY FROM BOTTOM OF LEFT FOOT - RESIDUAL "COLD" FEELING Hx of transurethral resection of prostate Past Anesthesia History No Hx of Anesthesia Complications and Difficult Airway History of PONV No Hx of PONV and No Hx of Motion Sickness Social History Smoking Status: Never smoker Do You Dip or Chew Tobacco: No Hx Alcohol Use: Yes Alcohol type: wine alcohol intake frequency: 0-2 drinks per day (1 glass wine/day) Hx Substance Use: No substance use type: does not use Review of Systems Patient denies chest pain, shortness of breath, dyspnea on exertion, chills, fever, cough, wheezing, palpitations. Physical Exam Vital Signs VITALS BP 107/68 P 67 TEMP 98.3 SP02 97%RA RESP 16 PHYSICAL Full neck and c-spine range of motion. Full TMJ range of motion. TMD 3 finger breaths Mallampati Score 3 Dentition: possible missing molar, + implants/crowns (including upper front implant/crown) Lungs: clear throughout to auscultation Cardiac: regular rate and rhythm, no murmurs noted Spine: normal Carotid arteries: negative bruit Extremities: no edema Testing Laboratory Results PT 11.2 Seconds (9.0-12.0) 05/04/20 09:25 INR 1.1 (0.9-1.1) 05/04/20 09:25 APTT 27.6 Seconds (21.0-31.0) 05/04/20 09:25 Blood Type O Positive 05/04/20 09:25 Antibody Screen NEGATIVE 05/04/20 09:25 05/04/20 WBC 5.13 H/H 13.8/40.4 PLATELETS 168 SODIUM 141 POTASSIUM 4.7 CHLORIDE 107 CO2 31 BUN 12 CREATININE 0.89 GLUCOSE 87 PT 11.2 PTT 27.6 INR 1.1 UA trace ketones Electrocardiogram Date: 05/04/20 NSR at 66bpm. unconfirmed report* Chest X-Ray Findings: + NAD
[2020-05-04 10:01] LABS: INR 1.1 (0.9-1.1); Partial Thromboplastin Time 27.6 Seconds (21.0-31.0); Prothrombin Time 11.2 Seconds (9.0-12.0)
--- NOTE | 2020-05-15 13:55 | History and Physical Report ---
DATE OF ADMISSION: 05/18/2020 CHIEF COMPLAINT: Bilateral hip pain and discomfort and stiffness, left side greater than right. HISTORY OF PRESENT ILLNESS: The patient is a 69-year-old gentleman who presents for surgical treatment of his left hip. He has about a 2-year history of bilateral hip pain and discomfort, left side a bit worse than the right. He used to be really active, playing tennis and playing golf, but cannot do this anymore due to his hip pain and discomfort. He has a lot of stiffness with his hips. He has difficulty putting his shoes and socks on. His walking tolerance is less than a mile. He has pain worse as the day goes on. He would like to get back to a more active lifestyle. He has been through extensive conservative treatment and would like to have his left hip fixed. Of note, we did have this patient scheduled for surgery previously, but it was rescheduled due to the COVID issues. Of note, the patient does have a history of prostate cancer with radiation treatment with some difficulty voiding and followed by Dr. Zelaya, who is planning on putting a Garcia in before surgery. PAST MEDICAL HISTORY: Past medical history significant for: 1. Prostate cancer. 2. Chronic back pain. 3. Radiation proctitis. 4. Radiation colitis. PAST SURGICAL HISTORY: Previous surgeries include: 1. Appendectomy. 2. Left foot surgery. 3. Prostate cancer surgery. 4. TURP. 5. Colon surgery. 6. Radiation proctitis surgery. ALLERGIES: None. CURRENT MEDICATIONS: Colace. SOCIAL HISTORY: A 69-year-old male. He is quite active normally. He lives in [place]. He is and retired. Two children. A few drinks per day. Does not smoke. FAMILY HISTORY: Noncontributory. REVIEW OF SYSTEMS: Negative for diabetes, neurologic problem, vascular problems or bleeding disorders. Denies any chest pain or shortness of breath. No history of DVT or PE. He does have these chronic urinary issues due to his prostate as well as GI issues due to the colitis from radiation treatment. PHYSICAL EXAMINATION: GENERAL: Healthy, pleasant, middle-aged male. Looks to be in excellent health. HEENT: Benign. NECK: Supple, no lymphadenopathy. LUNGS: Clear to auscultation. HEART: Has a regular rate and rhythm. ABDOMEN: Soft, nontender, nondistended. EXTREMITIES: Grossly neurovascularly intact except as follows. Examination of both hips reveal the patient walks with pretty stiff legged gait. He walks with his hip slightly flexed in a bent over position. Examination of left hip reveals a slight shortening at this point compared to the opposite side about 0.5 cm or so. He has very limited hip motion and internal rotation to -5. He has pain with any type of hip motion, particularly internal rotation. Negative straight leg raise. No knee effusion. He is neurologically intact. X-RAYS: X-rays of both hips reveal advanced bilateral hip DJD. He has got complete loss of the joint space bilaterally. The left hip maybe just slightly worse than the right. He has got large medial osteophytes of the acetabulum. ASSESSMENT AND PLAN: A 69-year-old male with advanced bilateral hip degenerative joint disease, left side a bit worse than the right. He has failed conservative care. It is affecting his quality of life. He would like to have his left hip replaced. He does have some other issues particularly with respect to his prostate. Dr. Zelaya is going to place a Garcia catheter preoperatively. We will have him manage that postoperatively. Risks and benefits of left total hip replacement were explained to the patient including but not limited to DVT, PE, , infection, neurological injury, vascular injury, bleeding problem, pain, limited range of motion, stiffness, failure to relieve symptoms, incomplete relief of symptoms, need for further surgery in future, fracture, leg length inequality, need for blood transfusion. The patient understands and desires to proceed. Informed consent was obtained. As far as discharge plans, he is planning to be discharged to home with [facility]. NAYAN
--- NOTE | 2020-05-17 09:12 | Communication Note ---
Date of Service: May 17, 2020 Patient had TURP last week with Dr. Zelaya. COVID tested prior to this procdure on 05/10/2020. No repeat covid screen. Patient has been staying at home and is low risk for recent exposure. Does not warrant repeat testing especially since the procedure on 05/18/2020 could be SAB and would avoid GA. Ok to proceed.
[2020-05-18] MEDS ORDERED: LR 500ML BOLUS, THEN 15ML/HR IV SCH (06:00)
[2020-05-18] MEDS ORDERED: SCOPOLAMINE 1.5 MG TDSY TD SCH (06:00)
[2020-05-18] MEDS ORDERED: LR 60ML/HR IV SCH (06:00)
[2020-05-18] MEDS ORDERED: TRANEXAMIC ACID 1,000 MG **IV Pre-op IV SCH (06:00)
[2020-05-18] MEDS ORDERED: ACETAMINOPHEN 500 MG TAB PO SCH (06:00)
[2020-05-18] MEDS ORDERED: METOCLOPRAMIDE HCL 10 MG TABLET PO SCH (06:00)
[2020-05-18] MEDS ORDERED: CEFAZOLIN 2000MG 2,000 MG/15 ML SYR IV SCH (06:00)
[2020-05-18] MEDS ORDERED: FAMOTIDINE 20 MG TAB PO SCH (06:00)
[2020-05-18] MEDS ORDERED: GABAPENTIN 300 MG CAP PO SCH (06:00)
[2020-05-18] MEDS ORDERED: fentaNYL citrate 100 MCG/2 ML VIAL IV PRN (06:28)
[2020-05-18] MEDS ORDERED: ATROPINE SULFATE 0.1 MG/ML 10ML SYR IV PRN (06:28)
[2020-05-18] MEDS ORDERED: ONDANSETRON INJ 2 MG/ML 2 ML VIAL IV PRN ×2 (06:28→09:32)
[2020-05-18] MEDS ORDERED: ePHEDrine sulfate 50 MG/ML AMP IV PRN ×2 (06:28→07:20)
[2020-05-18] MEDS ORDERED: BUPIVACAINE 0.5 % 5 MG/1 ML PF 10ML VIAL ONE (06:29)
--- NOTE | 2020-05-18 06:32 | Anesthesiology Consultation ---
Date of Service May 18, 2020 Assessment & Plan (1) Encounter for pre-operative examination: Chart Review Chart Review: Acceptable Risk for Surgery and Patient NOT seen in Pre Admission Testing Consults Requested none History Surgery Operation Date: 05/18/20 07:00 Proposed Procedures p Left Total Hip Replacement - Odin Soria MD Height/Weight Height: 6 ft Weight: 75 kg Allergies Allergy/AdvReac Type Severity Reaction Status Date / Time No Known Allergies Allergy Verified 05/13/20 10:55 Medications Home Medications Medication Instructions Recorded Confirmed Last Taken docusate sodium 100 mg capsule 100 mg PO PM 02/26/19 05/18/20 05/17/20 18:00 cholecalciferol (vitamin D3) 400 unit PO QAM 02/04/20 05/18/20 05/16/20 16:00 [Vitamin D3] multivitamin 1 tab PO QAM 02/04/20 05/18/20 05/16/20 16:00 diphenhydramine 25 2 tab PO HS tab 03/31/20 05/18/20 05/10/20 mg-acetaminophen 500 mg tablet psyllium husk 3.4 gram/5.4 gram 1 tbs PO QAM 03/31/20 05/18/20 05/16/20 12:00 oral powder ciprofloxacin HCl [Cipro] 500 mg PO BID #14 tab 05/13/20 05/18/20 05/17/20 08:00 melatonin 1 mg PO HS PRN 05/13/20 05/18/20 05/11/20 pumpkin seed extract-soy germ [Azo 1 cap PO PM 05/13/20 05/18/20 05/17/20 11:00 Bladder Control] Active Medications Generic Name Dose Route Start Last Admin Trade Name Freq PRN Reason Stop Dose Admin Acetaminophen 1,000 mg 05/18/20 06:00 05/18/20 06:07 Tylenol PO 05/18/20 18:00 1,000 mg PREOP NURIS Administration Famotidine 20 mg 05/18/20 06:00 05/18/20 06:07 Pepcid PO 05/18/20 18:00 20 mg PREOP NURIS Administration Gabapentin 300 mg 05/18/20 06:00 05/18/20 06:07 Neurontin PO 05/18/20 18:00 300 mg PREOP NURIS Administration Lactated Ringer's 1,000 mls @ 15 mls/hr 05/18/20 06:00 05/18/20 05:44 Lr IV 05/18/20 18:00 15 mls/hr .Q24H NURIS Administration Metoclopramide HCl 10 mg 05/18/20 06:00 05/18/20 06:07 Reglan PO 05/18/20 18:00 10 mg PREOP NURIS Administration Scopolamine 1.5 mg 05/18/20 06:00 05/18/20 06:07 Transderm-Scop TD 05/18/20 18:00 1.5 mg PREOP NURIS Administration NPO Date Last Intake of Fluids: 05/17/20 Time Last Intake of Fluids: 18:00 Date Last Intake of Solids: 05/17/20 Time Last Intake of Solids: 18:00 Past Medical History Medical History Bilateral hip joint arthritis Garcia catheter in place (Acute) History of prostate cancer s/p resection + radiation Hyperlipidemia Mild chronic anemia Osteoarthritis Radiation proctitis Urinary frequency + urgency Exercise / Class Metabolic Activity II 4-5 Yardwork/Stairs/Walk up hill Past Family History Family History Mother Colorectal cancer Hypertension Uncle Heart disease Father Renal failure Past Surgical History Surgical History History of prostate biopsy History of tooth extraction Hx of appendectomy Hx of colonoscopy with polypectomy Hx of foot surgery NERVES SURGERY FROM BOTTOM OF LEFT FOOT - RESIDUAL "COLD" FEELING Hx of surgical procedure cystolithopaxy with TURP Hx of transurethral resection of prostate Past Anesthesia History No Hx of Anesthesia Complications and No Family Hx of Anesthesia Complications History of PONV No Hx of PONV and No Hx of Motion Sickness Social History Smoking Status: Never smoker Do You Dip or Chew Tobacco: No Hx Alcohol Use: Yes Alcohol type: wine alcohol intake frequency: 0-2 drinks per day Hx Substance Use: No substance use type: does not use Physical Exam Vital Signs Last Vital Signs Temp 36.7 C 05/18/20 05:49 Pulse 77 05/18/20 05:49 Resp 20 05/18/20 05:49 BP 127/73 05/18/20 05:49 Pulse Ox 97 05/18/20 05:49 Testing Laboratory Results PT 11.2 Seconds (9.0-12.0) 05/04/20 09:25 INR 1.1 (0.9-1.1) 05/04/20 09:25 APTT 27.6 Seconds (21.0-31.0) 05/04/20 09:25 Blood Type O Positive 05/04/20 09:25 Antibody Screen NEGATIVE 05/04/20 09:25 Electrocardiogram Date: 05/04/20 NSR at 66bpm. unconfirmed report* Chest X-Ray Findings: + NAD
[2020-05-18] MEDS ORDERED: MoRPHine SULFATE PF 1 MG/ML 10 ML AMP/VIAL ONE (06:44)
[2020-05-18] MEDS ORDERED: MIDAZOLAM HCL 1 MG/ML 2ML VIAL ONE (06:44)
[2020-05-18] MEDS ORDERED: BACITRACIN INJ 50,000 UNIT VIAL ONE (06:53)
[2020-05-18] MEDS ORDERED: BUPIVACAINE 0.5 % 5 MG/1 ML MPF 30ML VIAL ONE (06:53)
[2020-05-18] MEDS ORDERED: EPINEPHrine INJ 1 MG/ML AMP ONE (06:54)
[2020-05-18] MEDS ORDERED: PROPOFOL IV EMULSION 10 MG/ML 20 ML VIAL IV ONE ×2 (07:13→07:57)
[2020-05-18] MEDS ORDERED: LIDOCAINE HCL 2% 2 ML VIAL/AMP(20MG/ML) INFIL ONE (07:13)
[2020-05-18] MEDS ORDERED: NALOXONE HCL 0.4 MG/1 ML VIAL/CARP IV PRN ×2 (07:20→09:32)
[2020-05-18] MEDS ORDERED: NALOXONE HCL 0.08 MG in SYRINGE 1.8 ML IV PRN (07:20)
[2020-05-18] MEDS ORDERED: MoRPHine SULFATE 2 MG/ML CARP IV PRN (07:20)
[2020-05-18] MEDS ORDERED: NALBUPHINE HCL INJ 10 MG/ML AMP IV PRN (07:20)
[2020-05-18] MEDS ORDERED: KETOROLAC 30 MG/ML VIAL IV PRN (07:20)
[2020-05-18] MEDS ORDERED: MoRPHine SULFATE PF 1 MG/ML 10 ML AMP/VIAL INT SPINAL ONE (07:20)
[2020-05-18] MEDS ORDERED: NALOXONE HCL 1 MG in SODIUM CHLORIDE 0.9% 1000ML 1,000 ML IV PRN (07:20)
[2020-05-18] MEDS ORDERED: DiphenhydrAMINE HCL 50 MG/ML VIAL IV PRN (07:20)
[2020-05-18] MEDS ORDERED: LACTATED RINGER'S 500 ML IV PRN (07:20)
[2020-05-18] MEDS ORDERED: PROMETHAZINE HCL 12.5 MG in SODIUM CHLORIDE 0.9% 50 ML IV PRN (07:20)
[2020-05-18] MEDS ORDERED: DC INTRASPINAL MORPHINE SCH (07:30)
[2020-05-18] MEDS ORDERED: NO NARCOTICS OR SEDATIVES SCH (07:30)
[2020-05-18] MEDS ORDERED: SODIUM CHLORIDE 0.9% 1000ML 1,000 ML IV SCH (07:30)
[2020-05-18] MEDS ORDERED: PHENYLEPHRINE 100MCG/ML 5ML SYR ONE (07:33)
[2020-05-18] MEDS ORDERED: ePHEDrine sulfate 50 MG/ML SYR ONE (07:33)
--- NOTE | 2020-05-18 08:21 | Post Operative Brief Note ---
PG Immediate Post Op with CF Date of Surgery May 18, 2020 Pre & Post Diagnosis Operation Date: 05/18/20 07:00 Pre-Op Diagnosis: Left Hip Advanced Degenerative Joint Disease Post-Op Diagnosis: Left Hip Advanced Degenerative Joint Disease I identified the patient and participated in the time-out.: Yes Procedure Operation Date: 05/18/20 07:00 Actual Procedures p Left Total Hip Arthroplasty--Uncemented(Left) - Odin Soria MD Surgeon Odin Soria MD Registered Pharmacy Technician Skylar, PAC Estimated Blood Loss 200 Findings Consistent with Post-Op Diagnosis Fluids 1000 cc Specimens Specimen Description: A. Left Femoral Head Drains Currie Catheter (Patient had currie catheter already intact and patent upon arrival to OR, from a previous procedure.) Anesthesia Type Spinal MAC Complications none Disposition Accompanied Patient To Recovery: Yes Disposition: Recovery Room
--- NOTE | 2020-05-18 08:36 | Operative Report ---
Post Operative Report Pre & Post Diagnosis Operation Date: 05/18/20 07:00 Pre-Op Diagnosis: Left Hip Advanced Degenerative Joint Disease Post-Op Diagnosis: Left Hip Advanced Degenerative Joint Disease I identified the patient and participated in the time-out.: Yes Procedure Operation Date: 05/18/20 07:00 Actual Procedures p Left Total Hip Arthroplasty--Uncemented(Left) - Odin oSria MD Surgeon Odin Soria MD Pourer Buggy Ladle Skylar, PAC Estimated Blood Loss 200 Findings Consistent with Post-Op Diagnosis Operative findings revealed advanced left hip DJD. He had extensive grade 4 changes of the femoral head and acetabulum. He had a large anterior acetabular osteophyte. Moderate sized joint effusion. Fluids 1000 cc. Specimens Left femoral head sent for pathology. Drains None. Anesthesia Type Spinal MAC Complications none Disposition Accompanied Patient To Recovery: Yes Disposition: Recovery Room Indications Patient is a 69-year-old gentleman is had a several year history of gradually increasing of bilateral hip pain discomfort left side greater than right. He is failed all conservative care. Symptoms got progressively worse over the past year that he is resorted to using a cane. He elected proceed with total hip arthroplasty. Description of Procedure Operative implants consist of: 1. Biomet G7 size 58 mm acetabular shell. 2. 6.5 cancellus acetabular screws 1 of 35 mm length and 125 mm length. 3. Welches hole eliminator. 4. Highly cross-linked polyethylene liner with a 58 mm outer diameter and 36 mm inner diameter. 5. Carolyn Corail size 12 KLA femoral stem. 6. +8.5/36 mm ceramic articular ball. Patient was taken to the operating room identified and placed in the operative supine position protectors were properly padded. IV antibiotics arrived by anesthesia team. Spinal anesthetic been implemented holding area. Garcia catheter was placed had been placed preoperatively by urology several days ago for urinary issues. Patient was then placed in the right lateral decubitus position. Axillary roll was placed. A Stulberg hip positioner was used for positioning. The left hip and leg were then prepped and draped in usual sterile fashion. A posterior lateral posterior left hip was then performed to a curvilinear incision centered over the greater trochanter. Sharp dissection got through subcutaneous tissue down to level the IT band gluteal fascia the IT band gluteal fascia then incised longitudinally in line with skin incision. The underlying greater truck bursa was excised. The piriformis and external rotators were tagged and taken off the posterior aspect hip joint capsule. Great care was taken throughout the procedure protect the sciatic nerve at all times. Posterior capsulotomy was then performed leaving a large flap for later repair. Hip was internally rotated and dislocated. Femoral neck osteotomy cut was made with Final Cut 18 mm above the lesser trochanter. Femoral head was removed and sent for pathology. The femur was retracted anteriorly. Attention drawn the acetabulum. The acetabular labrum was fairly ossified. There was not much to resect. I resected the pulmonary fat. Sequential reaming the acetabular was then performed begin with a size 47 progressing up to 57. I did use the 58 reamer as his entrance to the acetabular is very narrow with a pincer type osteophytes. I then placed a 58 mm Biomet G7 acetabular shell in about 40 degrees lateral opening and 20 degrees of anteversion. Was fixed with two 6.5 cancellus acetabular screws. A large anterior osteophyte was removed. Trial liner was placed. Attention drawn the femur. The proximal femur was entered with a cookie-cutter followed by canal finder. Broached begin the size 8 and progressing up to 12. We got excellent fit of the 12. Calcar reamer was used smooth and off the calcar. The final calcar cut was 18 mm. I then trialed the hip. The hip was fully stable with all heads but the soft tissue tach laxity was pretty significant with a +5 articular ball. We elected to use a +8.5 articular ball. Seem to re-create leg lengths equal as well. We elect to place these implants. All trial implants were removed. An apex hole limited was placed. Highly cross-linked polyethylene liner was placed. A Carolyn KLA size 12 femoral stem was impacted in position. A +8.5/36 mm ceramic articular ball was placed. Hip was located once again found to be stable. Attention drawn toward closing. The wound was irrigated with copious pulsatile lavage solution. I did inject locally with 60 cc of half percent Marcaine with epinephrine. The posterior capsule external rotators were then repaired through drill holes in the posterior trochanter with #2 Tycron suture. The IT band gluteal fascia then closed in 1 PDS suture running fashion the subcutaneous tissues then closed with 2 layers the deep layer #1 Vicryl sutures subcutaneous tissue with 2-0 Dexon suture in a buried interrupted fashion. Skin was closed with skin terrell. Leg was then cleaned dried a sterile dressing composed Xeroform, 4 x 4's, ABD pad and foam tape was applied. Patient transferred to the recovery room in stable condition. Patient tolerated procedure well no complications. I attest to the content of the Intraoperative Record and any orders documented therein. Any exceptions are noted below.
--- NOTE | 2020-05-18 08:52 | XRay Report ---
AP PELVIS, CROSSTABLE LATERAL LEFT HIP History: Left total hip arthroplasty. Degenerative arthritis. Postop. FINDINGS: The patient is status post a left total hip arthroplasty. The hardware is intact. No fractu re or dislocation. Skin terrell are in place. IMPRESSION: Left total hip arthroplasty. No evidence for hardware complication. ACT 112: Negative or not required by law. Electronically signed by: David Guzmán M.D. 05/18/2020 8:51 AM
[2020-05-18] MEDS ORDERED: ALUMINUM/MAGNESIUM SUSP 30 ML UDC PO PRN (09:32)
[2020-05-18] MEDS ORDERED: TAMSULOSIN HCL 0.4 MG CAP PO PRN (09:32)
[2020-05-18] MEDS ORDERED: MAGNESIUM HYDROXIDE SUSP 30 ML UDC PO PRN (09:32)
[2020-05-18] MEDS ORDERED: bisacodyL 10 MG SUPP PR PRN (09:32)
[2020-05-18] MEDS ORDERED: MULTIVITAMIN TAB PO SCH (09:32)
[2020-05-18] MEDS ORDERED: METOCLOPRAMIDE HCL INJ 5 MG/ML 2 ML VIAL IV PRN (09:32)
[2020-05-18] MEDS ORDERED: PNEUMOCOCCAL POLYSACCHARIDES 25 MCG/0.5 ML VIAL/SYR IM ONE (10:11)
[2020-05-18] MEDS ORDERED: PNEUMOCOCCAL ADMINISTRATION CHARGE ONE (10:11)
[2020-05-18] MEDS ORDERED: MELATONIN 3 MG TAB PO PRN (10:22)
[2020-05-18] MEDS: SODIUM CHLORIDE 0.9% 1000ML 1,000 ML IV SCH ×2 (11:08→19:46)
[2020-05-18] MEDS: PSYLLIUM 58.6% POWDER PACKET PO SCH (12:15)
[2020-05-18] MEDS: CIPROFLOXACIN 500 MG TAB PO SCH ×2 (12:16→20:15)
[2020-05-18] MEDS: CHOLECALCIFEROL (VITAMIN D) 400 UNITS TABLET PO SCH (12:17)
[2020-05-18] MEDS: KETOROLAC TROMETHAMINE 15 MG/ML VIAL IV SCH ×2 (12:17→17:22)
[2020-05-18] MEDS: ASPIRIN 81 MG ECTAB PO SCH ×2 (12:17→20:15)
[2020-05-18] MEDS: DOCUSATE SODIUM 100 MG CAP PO SCH ×2 (12:17→20:16)
[2020-05-18] MEDS: MULTIVITAMIN TAB PO SCH (12:17)
--- NOTE | 2020-05-18 13:21 | Progress Notes ---
DATE: 05/18/2020 SUBJECTIVE: A 69-year-old gentleman postop from left hip replacement. He is doing well. He has not got the sensation back in his legs yet. Feels like it is just starting to come back. No chest pain or shortness of breath. Not feeling dizzy or lightheaded. OBJECTIVE: VITAL SIGNS: Temperature 36.4. Vital signs stable. GENERAL: Shows a pleasant elderly male. He is sitting up in bed. He is awake, alert and oriented. Looks comfortable. LUNGS: Clear to auscultation. HEART: Has a regular rate and rhythm. ABDOMEN: Soft, nontender, nondistended. EXTREMITIES: Grossly neurovascularly intact except as follows: Examination of the left hip and leg reveals the leg lengths to be equal. His dressing is clean, dry and intact. Thigh is soft and supple. He does not have any muscle function yet. He does have brisk refill. X-RAYS: X-rays of the left hip from recovery room are reviewed. It shows a left uncemented total hip arthroplasty. Components looked to be in good position. No signs of problems. ASSESSMENT: A 69-year-old male postoperative from left hip replacement, doing well. His hip is located. His spinal is still in effect. His pain is controlled. PLAN: 1. DVT prophylaxis including thigh-high TEDs, SCDs, and aspirin twice a day. 2. PT/OT. Weight bear as tolerated. Left total hip protocol. 3. Pain control, doing well with current pain regimen. We will obviously have to increase his pain medicines as the spinal wears off. 4. IV antibiotics x24 hours. 5. Disposition: He is planning to be discharged home with some home health once adequately recovered and medically stable.
[2020-05-18] MEDS: ACETAMINOPHEN 500 MG TAB PO SCH ×2 (14:20→22:21)
[2020-05-18] MEDS ORDERED: TRANEXAMIC ACID / 0.7% NACL 1,000 MG/100 ML BAG IV SCH (14:30)
--- NOTE | 2020-05-18 15:23 | Anesthesiology Progress Note ---
Date of Service May 18, 2020 Anesthesia Post Procedure Vital Signs Vital Signs: Temp Pulse Pulse Pulse Resp BP BP 05/18/20 14:25 16 05/18/20 13:25 16 05/18/20 12:25 17 05/18/20 12:22 36.4 C L 73 17 120/62 05/18/20 11:25 66 16 106/59 L 05/18/20 10:45 82 16 118/71 05/18/20 10:28 16 05/18/20 10:25 16 05/18/20 09:57 36.4 C L 67 16 108/63 05/18/20 09:25 16 05/18/20 09:00 36.3 C L 68 14 108/59 L 05/18/20 08:50 71 15 111/59 L 05/18/20 08:40 72 14 119/57 L 05/18/20 08:30 79 15 115/57 L 05/18/20 08:23 36.1 C L 85 16 113/58 L 05/18/20 05:49 36.7 C 77 20 127/73 Pulse Ox 05/18/20 14:25 99 05/18/20 13:25 99 05/18/20 12:25 100 05/18/20 12:22 98 05/18/20 11:25 100 05/18/20 10:45 99 05/18/20 10:28 100 05/18/20 10:25 100 05/18/20 09:57 99 05/18/20 09:25 99 05/18/20 09:00 100 05/18/20 08:50 100 05/18/20 08:40 100 05/18/20 08:30 100 05/18/20 08:23 100 05/18/20 05:49 97 Transfer of Care Handoff Completed per policy Notes Mental Status: alert / awake / arousable and participated in evaluation Patient Amnestic to Procedure: Yes Nausea / Vomiting: adequately controlled Pain: adequately controlled Airway Patency, RR, SpO2: stable & adequate BP & HR: stable & adequate Hydration State: stable & adequate Neuraxial Anesthesia: was administered and sensory block is resolving Anesthetic Complications: no major complications apparent and Pt Satisfied with anesthetic care
[2020-05-18] MEDS: CEFAZOLIN 1000MG 1,000 MG/7.5 ML SYR IV SCH (16:59)
[2020-05-18] MEDS: CHECK SCOPOLAMINE PATCH PLACEMENT SCH (16:59)
[2020-05-18] MEDS ORDERED: [UNRECOGNIZED DRUG - OTHER] PO SCH (21:00)
[2020-05-18] MEDS ORDERED: DOCUSATE SODIUM 100 MG CAP PO SCH (21:00)
[2020-05-18] MEDS ORDERED: SENNA 8.6 MG TAB PO SCH (21:00)
[2020-05-19] MEDS: CEFAZOLIN 1000MG 1,000 MG/7.5 ML SYR IV SCH (00:26)
[2020-05-19] MEDS: KETOROLAC TROMETHAMINE 15 MG/ML VIAL IV SCH ×3 (00:26→11:39)
[2020-05-19] MEDS: CHECK SCOPOLAMINE PATCH PLACEMENT SCH ×2 (00:27→09:26)
[2020-05-19] MEDS ORDERED: TRAMADOL HCL 50 MG TABLET PO PRN (01:20)
[2020-05-19] MEDS ORDERED: HYDROmorphone INJ 0.5 MG/0.5 ML SYR IV PRN (01:20)
[2020-05-19] MEDS: ACETAMINOPHEN 500 MG TAB PO SCH (05:51)
[2020-05-19 05:58] LABS: Basophils # (auto) 0.01 K/uL (0-0.2); Basophils % (auto) 0.2 %; Eosinophils # (auto) 0.03 K/uL (0-0.5); Eosinophils % (auto) 0.6 %; Hematocrit (blood only) 31.9 % (42-52); Hemoglobin 10.6 g/dL (14.0-18.0); Lymphocytes # (auto) 0.63 K/uL (1.2-3.4); Lymphocytes % (auto) 11.9 %; Mean Corpuscular Hemoglobin 31.8 pg (25-34); Mean Corpuscular Hgb Conc 33.2 g/dL (32-36); Mean Corpuscular Volume 95.8 fL (80-100); Monocytes # (auto) 0.62 K/uL (0.11-0.59); Monocytes % (auto) 11.7 %; Neutrophils # (auto) 4.02 K/uL (1.4-6.5); Neutrophils % (auto) 75.6 %; Platelet Count 141 K/uL (130-400); RDW Coefficient of Variation 12.7 % (11.5-14.5); RDW Standard Deviation 44.1 fL (36.4-46.3); Red Blood Count 3.33 M/uL (4.7-6.1); White Blood Count 5.31 K/uL (4.8-10.8)
[2020-05-19 06:22] LABS: BUN Creatinine Ratio 12.4 (10-20); Calcium 8.1 mg/dl (8.5-10.1); Creatinine Clr Calc Pharmacy 105.7 ml/min; Est GFR (African American) 111.6; Est GFR (Non-African American) 96.3; Potassium 3.9 mmol/L (3.5-5.1)
[2020-05-19] MEDS: SODIUM CHLORIDE 0.9% 1000ML 1,000 ML IV SCH (06:44)
[2020-05-19 07:31] VITALS: TEMP 97.9
--- NOTE | 2020-05-19 07:32 | Orthopedic Progress Note ---
Date of Service May 19, 2020 Assessment & Plan (1) Status post total hip replacement, left: He is doing well and his pain is controlled. He is inquiring about the Garcia catheter which I believe will be removed today but will check with Dr. Soria. He would like to go home if possible today. We will continue discharge planning with possibility of discharge home with home health today. Continue PT OT. He is weightbearing as tolerated. Total hip precautions. ANUPAM stockings, SCDs, and aspirin for DVT prophylaxis. Subjective 69-year-old male postop day 1 from left total hip replacement. He is doing well. His pain is reasonably controlled. Denies any chest pain or shortness of breath. No other complaints. Physical Exam Physical Exam: He is alert and oriented. No distress. He sitting in the bedside chair. His dressing is clean, dry, and intact to the left hip. He is able dorsiflex plantarflex appropriately. He is neurovascular intact. Leg is well aligned and hip is located. Results & Data ([facility]) Vital Signs (Past 12 Hours) Vital Signs Temp Pulse Resp BP Pulse Ox 05/19/20 03:53 36.8 C 72 16 100/53 L 96 05/19/20 01:26 16 95 05/19/20 00:34 16 97 05/18/20 23:18 16 98 05/18/20 23:05 37.4 C 73 16 104/57 L 97 05/18/20 22:15 16 99 05/18/20 21:30 15 99 05/18/20 20:15 16 99 05/18/20 19:52 36.9 C 77 18 114/61 97 PG Care Time/CCT Total # of Minutes Spent Total Time Spent with Patient: Total time spent is greater than 50% in coordination of care (as documented) at patient's floor/unit and/or counseling patient: Coding Level of Care Code None Diagnoses Status post total hip replacement, left Z96.642
[2020-05-19] MEDS: PSYLLIUM 58.6% POWDER PACKET PO SCH (09:27)
[2020-05-19] MEDS: CHOLECALCIFEROL (VITAMIN D) 400 UNITS TABLET PO SCH (09:27)
[2020-05-19] MEDS: DOCUSATE SODIUM 100 MG CAP PO SCH (09:28)
[2020-05-19] MEDS: MULTIVITAMIN TAB PO SCH (09:28)
[2020-05-19] MEDS: CIPROFLOXACIN 500 MG TAB PO SCH (09:28)
[2020-05-19] MEDS: ASPIRIN 81 MG ECTAB PO SCH (10:35)
[2020-05-19 11:10] VITALS: BP 105/63; PULSE 79; O2SAT 98
--- NOTE | 2020-05-23 08:06 | Discharge Summary ---
Date of Service May 23, 2020 Admission HPI Per Admitting Provider Documented in the H&P Admission Exam (Per Admitting) Constitutional Documented in the H&P Discharge Data Consultations 05/19/20 08:00 Consult Case Management - Discharge Planning Routine Procedures Performed Operation Date: 05/18/20 07:00 Actual Procedures p Left Total Hip Arthroplasty--Uncemented(Left) - Odin Soria MD Hospital Course (1) Status post total hip replacement, left: 69-year-old male admitted on 05/18/2020 underwent total hip replacement. He tolerated the procedure well and there were no complications. He was transferred to the PACU postoperatively and later to the orthopedic for further care. He was given Ancef for antibiotic prophylaxis. He was given ANUPAM sto ckings, SCDs, and aspirin for DVT prophylaxis. Hemoglobin, hematocrit, and vital signs were monitored during his hospital stay remained stable. He did not require any blood transfusions. There were no complications. By postoperative day 1 he was tolerating a regular diet, pain was controlled with oral pain medicine, and he is participating in physical therapy. On postop day 1 he was discharged home set up with home health services. He was given printed discharge instructions as well as new prescriptions for extra strength Tylenol, aspirin, and tramadol. Continue his home medications the exception of Tylenol PM which was stopped. Continue physical therapy. He is weightbearing as tolerated. Continue total hip precautions. ANUPAM stockings. Follow-up approximately 2 weeks postoperatively or sooner if there are any problems or concerns. Coding Level of Care Code None Diagnoses Status post total hip replacement, left Z96.642
== END 2020-05-19 12:30 | disposition home health service (06) ==
LOC: ASU 05:11 → 3E 05:11

== ENCOUNTER 2020-10-29 05:14 | Observation (INO) ==
--- NOTE | 2020-10-18 15:20 | Anesthesiology Consultation ---
Date of Service October 18, 2020 Assessment & Plan (1) Encounter for pre-operative examination: Chart Review Chart Review: Acceptable Risk for Surgery (pending preop Covid testing ) and Patient NOT seen in Pre Admission Testing Per nursing assessment 10/18/2020, patient denies any recent travel. No known Covid positive contacts or Covid related symptoms. Scheduled for preop Covid testing 10/25/20= awaiting results. Left CLEOPATRA 05/18/2020 = done under SAB at L 45 with 1 attempt. No anesthesia issues noted. History Surgery Operation Date: 10/29/20 12:30 Proposed Procedures p Right Total Hip Arthroplasty - Odin Soria MD Height/Weight Height: 6 ft Weight: 72.575 kg Allergies Allergy/AdvReac Type Severity Reaction Status Date / Time No Known Allergies Allergy Verified 10/18/20 07:33 Medications Home Medications Medication Instructions Recorded Confirmed Last Taken cholecalciferol (vitamin D3) 400 unit PO QAM 02/04/20 10/18/20 05/16/20 16:00 [Vitamin D3] psyllium husk 3.4 gram/5.4 gram 1 tbs PO QAM 03/31/20 10/18/20 05/16/20 12:00 oral powder docusate sodium 100 mg capsule 200 mg PO PM cap 10/07/20 10/18/20 Unknown diphenhydramine-acetaminophen 1 tab PO 5XWK PRN 10/18/20 10/18/20 Unknown [Tylenol PM Extra Strength] Past Medical History Medical History Constipation History of prostate cancer s/p resection + radiation Hyperlipidemia no meds Mild chronic anemia Radiation proctitis Urinary frequency + urgency Past Family History Family History Mother Colorectal cancer Hypertension Uncle Heart disease Father Renal failure Past Surgical History Surgical History History of prostate biopsy History of tooth extraction History of total left hip replacement Hx of appendectomy Hx of colonoscopy with polypectomy Hx of foot surgery NERVES SURGERY FROM BOTTOM OF LEFT FOOT - RESIDUAL "COLD" FEELING Hx of surgical procedure cystolithopaxy with TURP Hx of transurethral resection of prostate Social History Smoking Status: Never smoker Do You Dip or Chew Tobacco: No Hx Alcohol Use: Yes Alcohol type: wine alcohol intake frequency: a few times a week Hx Substance Use: No substance use type: does not use Testing Laboratory Results Blood Type O Positive 09/30/20 08:54 Antibody Screen NEGATIVE 09/30/20 08:54 Laboratory Tests 09/30/20 09/30/20 09/30/20 08:53 08:53 08:54 WBC 4.35 L Hgb 13.4 L Hct 41.5 L Plt Count 184 PT 11.2 INR 1.1 Sodium 142 Potassium 4.1 Chloride 108 H Carbon Dioxide 32 BUN 12 Creatinine 0.88 Glucose 84 Electrocardiogram Date: 05/04/20 Findings: + NSR @ (66) Normal EKG. Chest X-Ray Date: 05/04/20 Findings: + NAD
--- NOTE | 2020-10-22 08:53 | History and Physical Report ---
DATE OF ADMISSION: 10/29/2020 CHIEF COMPLAINT: Persistent right hip pain and discomfort and stiffness. HISTORY OF PRESENT ILLNESS: The patient is a 70-year-old gentleman who is now 5 months out from a left hip replacement. The left hip is doing well. He continues to be limited by right hip pain and discomfort. It has gradually gotten worse even since his left hip surgery as he has become a bit more active. He describes groin and thigh pain. No numbness. He has difficulty putting his shoes and socks on. He has a limited walking tolerance. He has pain going up and down steps. He would like to have his right hip fixed. PAST MEDICAL HISTORY: 1. Prostate cancer. 2. Chronic back pain. 3. Radiation proctitis/colitis. PAST SURGICAL HISTORY: Included: 1. Left hip replacement on 05/18/2020. 2. Prostate cancer resection. 3. Left foot surgery. 4. Colon surgery. 5. Unspecified surgery for radiation proctitis. ALLERGIES: None. CURRENT MEDICINES: 1. Colace 100 mg a day. 2. Melatonin at nighttime. 3. Multivitamin. 4. Metamucil. 5. Pumpkin seed extract. 6. Vitamin D3. SOCIAL HISTORY: A 70-year-old male. He is . He is retired. Two children. One drink per day. Does not smoke. FAMILY HISTORY: Noncontributory. REVIEW OF SYSTEMS: Significant for some urinary problems from his prostate cancer. Also, has GI issues from radiation, but does okay as long as he stays on a stool softener. No chest pain or shortness of breath. No history of DVT or PE. PHYSICAL EXAMINATION: GENERAL: Shows a pleasant, healthy, middle-aged male, looks to be in good health. HEENT: Benign. NECK: Supple, no lymphadenopathy. LUNGS: Clear to auscultation. HEART: Has a regular rate and rhythm. ABDOMEN: Soft, nontender, nondistended. EXTREMITIES: Grossly neurovascularly intact except as follows. Examination of the right hip reveal patient walks independently. Leg lengths clinically appear pretty equal. He does limp a little bit on the right side. He has pain with any type of hip motion. Very stiff hip on the right. Internal rotation to neutral at best. Negative straight leg raise. No knee effusion. The left hip moves without significant pain and a very mobile. X-RAYS: X-rays of the right hip were reviewed. Shows advanced right hip DJD. He has got complete loss of the superior joint space. He has got osteophytes of the acetabulum as well as the femoral head. Left hip replacement looks to be in good position. ASSESSMENT: A 70-year-old gentleman 5 months out from a left hip replacement with advanced right hip degenerative joint disease. He would like to have his right hip replaced. He has failed conservative care. PLAN: We will take him to the operating room and do right total hip replacement. The risks and benefits of this procedure were explained to the patient including but not limited to DVT, PE, , infection, neurological injury, vascular injury, bleeding problem, pain, range of motion, stiffness, failure to relieve his symptoms, incomplete relief of symptoms, need for further surgery in future, fracture, leg length inequality, nerve palsy, etc. The patient understands and desires to proceed. Informed consent was obtained. We did speak with Dr. Zelaya and he did not think there were any issues with putting his Garcia catheter in and we will plan on doing that preoperatively. We will have to keep him on stool softener postoperatively due to his radiation issues and his colitis. He is planning to be discharged home using the [facility] home health program.
[2020-10-29] MEDS ORDERED: ceFAZolin 2000MG 2,000 MG/15 ML SYR IV SCH (06:00)
[2020-10-29] MEDS ORDERED: LR 500ML BOLUS, THEN 15ML/HR IV SCH (06:00)
[2020-10-29] MEDS ORDERED: FAMOTIDINE 20 MG TAB PO SCH (06:00)
[2020-10-29] MEDS ORDERED: GABAPENTIN 300 MG CAP PO SCH (06:00)
[2020-10-29] MEDS ORDERED: LR 15ML/HR IV SCH (06:00)
[2020-10-29] MEDS ORDERED: ACETAMINOPHEN 500 MG TAB PO SCH (06:00)
[2020-10-29] MEDS ORDERED: TRANEXAMIC ACID / 0.7% NACL 1,000 MG/100 ML BAG IV SCH ×2 (06:00→14:27)
[2020-10-29] MEDS ORDERED: fentaNYL citrate 100 MCG/2 ML VIAL ONE (06:19)
[2020-10-29] MEDS ORDERED: PROPOFOL IV EMULSION 10 MG/ML 20 ML VIAL IV ONE ×2 (06:19→07:52)
[2020-10-29] MEDS ORDERED: MoRPHine SULFATE PF 1 MG/ML 10 ML AMP/VIAL ONE (06:19)
[2020-10-29] MEDS ORDERED: MIDAZOLAM HCL 1 MG/ML 2ML VIAL ONE (06:19)
[2020-10-29] MEDS ORDERED: BUPIVACAINE 0.5 % 5 MG/1 ML PF 10ML VIAL ONE (06:29)
--- NOTE | 2020-10-29 06:45 | History & Physical Bridge Note ---
Date of Service October 29, 2020 History & Physical Bridge Note I have examined the patient, reviewed the History & Physical and in the interval since the performance of the History & Physical I have noted the following changes of clinical significance: no changes noted
[2020-10-29] MEDS ORDERED: BUPIVACAINE/EPINEPHRINE 0.5% MPF 1:200,000 30 ML VIAL ONE (06:48)
[2020-10-29] MEDS ORDERED: BACITRACIN INJ 50,000 UNIT VIAL ONE (06:48)
[2020-10-29] MEDS ORDERED: PHENYLEPHRINE 100MCG/ML 5ML SYR ONE ×2 (07:14→09:26)
[2020-10-29] MEDS ORDERED: ePHEDrine sulfate 50 MG/ML AMP ONE (07:24)
--- NOTE | 2020-10-29 08:24 | Post Operative Brief Note ---
PG Immediate Post Op with CF Date of Surgery October 29, 2020 Pre & Post Diagnosis Operation Date: 10/29/20 07:00 Pre-Op Diagnosis: Right Hip Advanced Degenerative Joint Disease Post-Op Diagnosis: Right Hip Advanced Degenerative Joint Disease I identified the patient and participated in the time-out.: Yes Procedure Operation Date: 10/29/20 07:00 Actual Procedures p Right Total Hip Arthroplasty--Uncemented(Right) - Odin Soria MD Surgeon Odin Soria MD Ground Equipment Mechanic RON Cheng Estimated Blood Loss 200 Findings Consistent with Post-Op Diagnosis Fluids 1200 cc Specimens Specimen Description: A. Right Femoral Head Drains Garcia Catheter Anesthesia Type Spinal MAC Complications none Disposition Accompanied Patient To Recovery: Yes Disposition: Recovery Room
[2020-10-29] MEDS ORDERED: ePHEDrine sulfate 50 MG/ML AMP IV PRN (08:42)
[2020-10-29] MEDS ORDERED: ONDANSETRON INJ 2 MG/ML 2 ML VIAL IV PRN (08:42)
[2020-10-29] MEDS ORDERED: NALOXONE HCL 0.08 MG in SYRINGE 1.8 ML IV PRN (08:42)
[2020-10-29] MEDS ORDERED: NALOXONE HCL 0.4 MG/1 ML VIAL/CARP IV PRN ×2 (08:42→10:35)
[2020-10-29] MEDS ORDERED: NALOXONE HCL 1 MG in SODIUM CHLORIDE 0.9% 1000ML 1,000 ML IV PRN (08:42)
[2020-10-29] MEDS ORDERED: LACTATED RINGER'S 500 ML IV PRN (08:42)
[2020-10-29] MEDS ORDERED: MoRPHine SULFATE PF 1 MG/ML 10 ML AMP/VIAL INT SPINAL ONE (08:42)
[2020-10-29] MEDS ORDERED: PROMETHAZINE HCL 25 MG in SODIUM CHLORIDE 0.9% 50 ML IV PRN (08:42)
[2020-10-29] MEDS ORDERED: diphenhydrAMINE 50 MG/ML VIAL IV PRN (08:42)
[2020-10-29] MEDS ORDERED: SODIUM CHLORIDE 0.9% 1000ML 1,000 ML IV SCH (08:45)
[2020-10-29] MEDS ORDERED: NO NARCOTICS OR SEDATIVES SCH (08:45)
[2020-10-29] MEDS ORDERED: DC INTRASPINAL MORPHINE SCH (08:45)
--- NOTE | 2020-10-29 09:08 | XRay Report ---
XR hip 1V RT w pelvis HISTORY: 70 years-old Male IN PACU - A/P PELVIS and LATERAL HIP right hip total joint arthroplasty COMPARISON: Pelvis and hip radiograph 09/27/2020 TECHNIQUE: AP view of the pelvis with crosstable lateral view of the right hip FINDINGS: Right hip total joint arthroplasty. Satisfactory alignment without acute fracture or unexpected opaqu e foreign body. Lateral skin terrell. Surgical clips project over the midline pelvis. Left hip total joint arthroplasty redemonstrated. IMPRESSION: Right hip total joint arthroplasty with expected postoperative changes. ACT 112: Negative or not required by law. The above report was generated using voice recognition software. It may contain grammatical, syntax o r spelling errors. Electronically signed by: Mauricio Garcia M.D. 10/29/2020 9:07 AM
--- NOTE | 2020-10-29 09:14 | Anesthesiology Progress Note ---
Date of Service October 29, 2020 Anesthesia Post Procedure Vital Signs Vital Signs: Temp Pulse Pulse Resp BP BP Pulse Ox 10/29/20 09:05 67 16 127/67 99 10/29/20 08:55 66 18 139/66 100 10/29/20 08:45 77 16 127/62 100 10/29/20 08:35 75 15 130/62 100 10/29/20 08:26 35.9 C L 77 16 127/61 100 10/29/20 05:25 36.5 C 89 18 146/76 H 99 Transfer of Care Handoff Completed per policy Notes Mental Status: alert / awake / arousable Patient Amnestic to Procedure: Yes Nausea / Vomiting: adequately controlled Pain: adequately controlled Airway Patency, RR, SpO2: stable & adequate BP & HR: stable & adequate Hydration State: stable & adequate Anesthetic Complications: no major complications apparent
[2020-10-29] MEDS ORDERED: NON-FORMULARY MEDICATION (Diphenhydramine-Acetaminophen [Tylenol Pm Extra Strength] 25-500 PO PRN (10:35)
[2020-10-29] MEDS ORDERED: TAMSULOSIN HCL 0.4 MG CAP PO PRN (10:35)
[2020-10-29] MEDS ORDERED: ALUMINUM/MAGNESIUM SUSP 30 ML UDC PO PRN (10:35)
[2020-10-29] MEDS ORDERED: METOCLOPRAMIDE HCL INJ 5 MG/ML 2 ML VIAL IV PRN (10:35)
[2020-10-29] MEDS ORDERED: bisacodyL 10 MG SUPP PR PRN (10:35)
[2020-10-29] MEDS ORDERED: MAGNESIUM HYDROXIDE SUSP 30 ML UDC PO PRN (10:35)
--- NOTE | 2020-10-29 10:46 | Anesthesiology Progress Note ---
Date of Service October 29, 2020 Anesthesia Post Procedure Vital Signs Vital Signs: Temp Pulse Pulse Resp BP BP Pulse Ox 10/29/20 10:00 36.3 C L 80 14 138/51 L 98 10/29/20 09:45 62 12 132/61 99 10/29/20 09:35 70 16 123/60 100 10/29/20 09:25 77 16 124/61 99 10/29/20 09:15 77 18 131/64 100 10/29/20 09:05 67 16 127/67 99 10/29/20 08:55 66 18 139/66 100 10/29/20 08:45 77 16 127/62 100 10/29/20 08:35 75 15 130/62 100 10/29/20 08:26 35.9 C L 77 16 127/61 100 10/29/20 05:25 36.5 C 89 18 146/76 H 99 Transfer of Care Handoff Completed per policy Notes Mental Status: alert / awake / arousable Patient Amnestic to Procedure: Yes Nausea / Vomiting: adequately controlled Pain: adequately controlled Airway Patency, RR, SpO2: stable & adequate BP & HR: stable & adequate Hydration State: stable & adequate Neuraxial Anesthesia: was administered and sensory block is resolving Anesthetic Complications: no major complications apparent
[2020-10-29] MEDS: KETOROLAC TROMETHAMINE 15 MG/ML VIAL IV SCH ×3 (12:42→23:22)
[2020-10-29] MEDS: MULTIVITAMIN TAB PO SCH (12:43)
[2020-10-29] MEDS: DOCUSATE SODIUM 100 MG CAP PO SCH ×2 (12:43→21:46)
[2020-10-29] MEDS: CHOLECALCIFEROL 400 UNITS 10 MCG TAB PO SCH (12:43)
[2020-10-29] MEDS: ASPIRIN 81 MG ECTAB PO SCH ×2 (12:43→21:45)
[2020-10-29] MEDS: PSYLLIUM 58.6% POWDER PACKET PO SCH (12:44)
[2020-10-29] MEDS: SODIUM CHLORIDE 0.9% 1000ML 1,000 ML IV SCH ×2 (12:58→21:57)
[2020-10-29] MEDS: ACETAMINOPHEN 500 MG TAB PO SCH ×2 (13:45→21:46)
[2020-10-29] MEDS: ceFAZolin 1000MG 1,000 MG/7.5 ML SYR IV SCH ×2 (14:12→23:22)
--- NOTE | 2020-10-29 14:22 | Operative Report ---
Post Operative Report Pre & Post Diagnosis Operation Date: 10/29/20 07:00 Pre-Op Diagnosis: Right Hip Advanced Degenerative Joint Disease Post-Op Diagnosis: Right Hip Advanced Degenerative Joint Disease I identified the patient and participated in the time-out.: Yes Procedure Operation Date: 10/29/20 07:00 Actual Procedures p Right Total Hip Arthroplasty--Uncemented(Right) - Odin Soria MD Surgeon Odin Soria MD Freight Rate Clerk RON Cheng Estimated Blood Loss 200 Findings Consistent with Post-Op Diagnosis Operative findings revealed advanced right hip DJD. He had extensive grade 4 [id number] disease of the femoral head and acetabulum. He had a large anterior acetabular osteophyte. He had multiple intra-articular osteochondral loose bodies. Fluids 1200 cc. Specimens Right femoral head sent for pathology. Complications none Disposition Accompanied Patient To Recovery: Yes Disposition: Recovery Room Indications Patient is a 70-year-old gentleman said a long history of bilateral hip pain discomfort. Has been through extensive conservative treatment the past. He underwent a left hip replacement earlier this year is recovered nicely. He continued by limited by right hip pain discomfort stiffness. He elected proceed with right total hip arthroplasty. Description of Procedure Operative implants consist of: 1. Biomet G7 size 58 mm acetabular shell. 2. [place] hole eliminator. 3. 6.5 cancellous acetabular screws 1 of 35 mm length and with 30 mm length. 4. Highly cross-linked polyethylene liner with a 58 mm outer diameter, 36 mm inner diameter. 5. Size 12 DePuy karate KLA femoral stem. 6. +5/36 mm ceramic articular ball. Patient was taken to the operating identified and placed on the operating table supine position protectors were properly padded. IV antibiotics tried by anesthesia team. Spinal anesthetic and been implemented in the holding area. Garcia catheter was placed in sterile fashion. The patient then placed in the left lateral decubitus position. An axillary roll was placed. A Stulberg hip positioner was used for positioning. The right hip and leg were then prepped and draped in usual sterile fashion. A posterior lateral approach to the right hip was then performed to a curvilinear incision centered over the greater trochanter. Sharp dissection got through subcutaneous is down to the level of the gluteal fascia. A curvilinear incision was made in the IT band gluteal fascia in line with the skin incision. The underlying greater bursa was excised. The piriformis and external rotators were tagged and taken off the posterior aspect hip joint capsule. Great care was taken throughout the procedure protect the sciatic nerve at all times. A posterior capsulotomy was then performed the leaving a large flap for later repair. The hip was internally rotated and dislocated. Femoral neck osteotomy cut was made with Final Cut about 18 mm above the lesser trochanter. Femoral head was removed and sent for pathology. The femur was retracted anteriorly. Attention drawn the acetabulum. The acetabular labrum was excised. The pulmonary fat was excised. Sequential reaming the acetabular was then performed begin with a size 49 reamer progressing up to 57. I did reamed up to a 58. A Biomet size 58 mm G7 acetabular shell was then placed in about 40 degrees lateral opening and 20 degrees of anteversion. It was fixed with two 6.5 cancellous acetabular screws. A large anterior osteophyte was removed. Trial liner was placed. Attention drawn the femur. The proximal femur was entered with a cookie-cutter followed by canal finder. I then broached begin the size 8 and progressing up to a 14. Got excellent fit of 14. The calcar reamer was used smooth and off the calcar. Then trialed the hip and the +5 articular ball provided appropriate leg lengths, soft tissue tension and stability. The hip was fully stable in full extension and external rotation flexion to 9 degrees internal rotation over [address] I elect to place these implants. All trial implants were removed. An apex hole grants director was placed. Highly cross-linked polyethylene liner was placed. A DePuy size 12 KLA femoral stem was impacted in position. +5/36 mm ceramic articular ball was placed. Hip was located once again found to be stable. Attention drawn toward closing. The wounds irrigated scope soft pulsatile lavage solution. I did inject locally with 60 cc of half percent Marcaine with epinephrine. The posterior capsule and external rotators were then repaired through drill holes in the posterior trochanter with #2 Tycron suture. The IT band gluteal fascia then closed in 1 PDS suture running fashion for subcutaneous tissue then closed with 2 layers with a deep layer #1 Vicryl suture and subcutaneous tissues with 2-0 Dexon suture in a buried interrupted fashion. Skin was closed skin terrell. Legs then cleaned dried and sterile dressed composed Xeroform, 4 x 4's, ABD pad, foam tape was applied. The patient then transferred to the recovery room in stable condition. Patient tolerated procedure well there are no complications. Edgar Cheng, my physician dental chairside assistant, was present for the entire procedure. His assistance was essential and required for appropriate patient positioning, prepping and draping, surgical exposure, performing the technical details of the operation, placement the implants, closure of the wound, and placement of the sterile bandage. I attest to the content of the Intraoperative Record and any orders documented therein. Any exceptions are noted below.
[2020-10-29] MEDS: FERROUS GLUCONATE 324 MG TAB PO SCH (17:06)
[2020-10-29] MEDS: ASCORBIC ACID 500 MG TAB PO SCH (17:06)
[2020-10-29] MEDS: SENNA 8.6 MG TAB PO SCH (21:45)
[2020-10-30] MEDS ORDERED: traMADol HCL 50 MG TABLET PO PRN (02:32)
[2020-10-30] MEDS ORDERED: HYDROmorphone INJ 0.5 MG/0.5 ML SYR IV PRN (02:32)
[2020-10-30] MEDS ORDERED: ONDANSETRON INJ 2 MG/ML 2 ML VIAL IV PRN (02:32)
[2020-10-30 03:41] LABS: Hematocrit (blood only) 28.4 % (42-52); Hemoglobin 9.4 g/dL (14.0-18.0); Immature Granulocytes # (auto) 0.01 K/uL (0.00-0.02); Immature Granulocytes % (auto) 0.2 %; Lymphocytes # (auto) 0.43 K/uL (1.2-3.4); Lymphocytes % (auto) 6.8 %; Mean Corpuscular Hemoglobin 31.5 pg (25-34); Mean Corpuscular Hgb Conc 33.1 g/dL (32-36); Mean Corpuscular Volume 95.3 fL (80-100); Mean Platelet Volume 10.3 fL (7.4-10.4); Monocytes # (auto) 0.68 K/uL (0.11-0.59); Monocytes % (auto) 10.8 %; Neutrophils % (auto) 82.2 %; Platelet Count 123 K/uL (130-400); RDW Coefficient of Variation 13.8 % (11.5-14.5); RDW Standard Deviation 48.1 fL (36.4-46.3); Red Blood Count 2.98 M/uL (4.7-6.1); White Blood Count 6.32 K/uL (4.8-10.8)
[2020-10-30 03:59] LABS: BUN Creatinine Ratio 14.5 (10-20); Calcium 7.5 mg/dl (8.5-10.1); Creatinine Clr Calc Pharmacy 95.7 ml/min; Est GFR (African American) 107.1; Est GFR (Non-African American) 92.4; Potassium 3.8 mmol/L (3.5-5.1)
[2020-10-30] MEDS: KETOROLAC TROMETHAMINE 15 MG/ML VIAL IV SCH ×4 (04:45→19:53)
[2020-10-30] MEDS: ACETAMINOPHEN 500 MG TAB PO SCH ×3 (04:46→19:53)
--- NOTE | 2020-10-30 13:40 | Progress Notes ---
DATE: 10/30/2020 SUBJECTIVE: A 70-year-old gentleman postop day 1 from right hip replacement. He is doing well. Much more awake, alert and appropriate this morning. His pain is very well controlled. No chest pain or shortness of breath. Not feeling dizzy or lightheaded. OBJECTIVE: VITAL SIGNS: He is afebrile with vital signs stable. GENERAL: Shows a pleasant, healthy, elderly male. He is sitting up in bed, looks quite comfortable this morning. Awake, alert and oriented. LUNGS: Clear to auscultation. HEART: Has a regular rate and rhythm. ABDOMEN: Soft, nontender, nondistended. EXTREMITIES: Grossly neurovascularly intact except as follows. Examination of the right hip and leg reveals the leg lengths to be equal. Dressing is clean, dry and intact. Thigh is soft and supple. He is neurologically intact. ASSESSMENT: A 70-year-old gentleman postop day 1 from right hip replacement. He is doing well. Pain is controlled. Hip is located. He is neurologically intact. PLAN: 1. DVT prophylaxis including thigh-high TEDs, SCDs, and aspirin twice a day. 2. PT/OT. Weight bear as tolerated. Right total hip protocol. 3. Pain control, doing well with current pain regimen. 4. Disposition: Plan to discharge to home with some home health. We will see how he does in therapy today and if his pain is controlled, we will hopefully get him home.
[2020-10-30] MEDS: FERROUS GLUCONATE 324 MG TAB PO SCH ×2 (19:35→19:37)
[2020-10-30] MEDS: ASPIRIN 81 MG ECTAB PO SCH ×2 (19:35→19:53)
[2020-10-30] MEDS: ASCORBIC ACID 500 MG TAB PO SCH ×2 (19:35→19:37)
[2020-10-30] MEDS: DOCUSATE SODIUM 100 MG CAP PO SCH ×2 (19:35→19:53)
[2020-10-30] MEDS: CHOLECALCIFEROL 400 UNITS 10 MCG TAB PO SCH (19:36)
[2020-10-30] MEDS: MULTIVITAMIN TAB PO SCH (19:36)
[2020-10-30] MEDS: PSYLLIUM 58.6% POWDER PACKET PO SCH (19:36)
[2020-10-30] MEDS: SENNA 8.6 MG TAB PO SCH (19:52)
[2020-10-31] MEDS: KETOROLAC TROMETHAMINE 15 MG/ML VIAL IV SCH (05:05)
[2020-10-31] MEDS: ACETAMINOPHEN 500 MG TAB PO SCH (05:05)
[2020-10-31 07:37] VITALS: PULSE 89; TEMP 98.8; O2SAT 96
[2020-10-31] MEDS: PSYLLIUM 58.6% POWDER PACKET PO SCH (08:18)
[2020-10-31] MEDS: ASPIRIN 81 MG ECTAB PO SCH (08:19)
[2020-10-31] MEDS: DOCUSATE SODIUM 100 MG CAP PO SCH (08:19)
[2020-10-31] MEDS: ASCORBIC ACID 500 MG TAB PO SCH (08:19)
[2020-10-31] MEDS: CHOLECALCIFEROL 400 UNITS 10 MCG TAB PO SCH (08:20)
[2020-10-31] MEDS: MULTIVITAMIN TAB PO SCH (08:20)
[2020-10-31] MEDS: FERROUS GLUCONATE 324 MG TAB PO SCH (08:21)
--- NOTE | 2020-10-31 08:47 | Progress Notes ---
DATE: 10/31/2020 SUBJECTIVE: A 70-year-old gentleman postop day 2 from right hip replacement. He is doing well this morning. Pain is controlled. He struggled a little bit with therapy yesterday, but anxious to get started again today. He is anxious to get home. No chest pain or shortness of breath. Not feeling dizzy or lightheaded. OBJECTIVE: VITAL SIGNS: Temperature 37.1. Vital signs stable. GENERAL: Shows a pleasant, middle-aged male. He is sitting up in bed, looks completely comfortable. EXTREMITIES: Examination of the right leg reveals the leg lengths to be equal. Dressing is clean, dry and intact. Thigh is soft and supple. He can dorsiflex and plantarflex his foot appropriately. ASSESSMENT: A 70-year-old gentleman postop day 2 from right hip replacement, doing pretty well. His pain is controlled. Hip is located. He is neurologically intact. PLAN: 1. DVT prophylaxis including thigh-high TEDs, SCDs, and aspirin twice a day. 2. PT/OT. Weight bear as tolerated. Right total hip protocol. 3. Pain control, doing okay with current pain regimen. 4. Disposition: Plan to discharge to home. He is going to have home health. We will have to see how he does in therapy today.
[2020-10-31 10:40] VITALS: BP 107/55
== END 2020-10-31 12:41 | disposition home health service (06) ==
LOC: ASU 05:14 → 3N 05:14